=== PATIENT | female | born 1950 | race Two or more races ===

== ENCOUNTER 2019-01-14 16:27 | Inpatient (IN) | payer MEDICAID ==
--- OUTSIDE RECORDS SUMMARY | 2019-01-14 17:25 | XMS REPORT | Continuity of Care Document ---
:1950 External Reference #:[id number] Author Name Bee Moreira Care Team Providers Name Role Phone Mickie Fountain MD Primary Care Physician Unavailable Payers Date Identification Numbers Payment Provider Subscriber Policy Number: [id number] Medicaid [employer] Name: [id number] PayID: [id number] [place] [address] Advance Directives Type Date Description Status Comment Other Directive 08/11/2018 Health Care Proxy Current and Verified Problems Active Problems Provider Date Diabetes mellitus Fly Chapman M.D. Onset: 02/24/2015 Essential hypertension Fly Chapman M.D. Onset: 02/24/2015 Hyperlipidemia Fly Chapman M.D. Onset: 02/24/2015 Hypothyroidism Fly Chapman M.D. Onset: 02/24/2015 Spinal stenosis of lumbar region Bruno Dunn M.D. Onset: 03/27/2015 Acquired spondylolisthesis Bruno Dunn M.D. Onset: 03/27/2015 Disturbance in sleep behavior Regla Rolon MD Onset: 01/11/2016 Obesity Regla Rolon MD Onset: 01/11/2016 Obstructive sleep apnea syndrome Regla Rolon MD Onset: 04/25/2016 Type II diabetes mellitus uncontrolled Mickie Fountain MD Onset: 08/11/2018 Lumbar spondylolisthesis Mickie Fountain MD Onset: 12/17/2018 Family History Date Family Member(s) Observation Comments General Diabetes : (1992) Father due to Head trauma Mother Diabetes Mother 86 Social History Type Date Description Comments Sex Unknown Marital Status Lives With Son Occupation Unemployed Tobacco Use Start: Unknown Never Smoked Cigarettes Smoking Status Reviewed: 12/17/18 Never Smoked Cigarettes ETOH Use Never used alcohol Recreational Drug Use Denies Drug Use Tobacco Use Start: Unknown Patient has never smoked Exercise Type/Frequency Does not exercise Allergies, Adverse Reactions, Alerts Description No Known Drug Allergies Medications Active Medications SIG Qnty Indications Ordering Date Provider Hydrochlorothiazide 1 by mouth every 30tabs I10 [facility], 25mg day MD Mathur Tablets Glyburide Take 1 Tablet By 30tabs Mickie [facility], 5mg Tablets Mouth Every Day MD Mathur Januvia 1 by mouth every 90tabs [facility] Александр, 100mg Tablets day MD Mathur Incontinence Brief Large change as needed 200units N39.46 Miller Powers, Misc due to [employer]ERSON 9 incontinence per 30 days - women's large Disposable Underpads per 30 days, use 240units N39.46 Miller Powers, as needed [employer] 9 Gloves per 30 days, use 1Box N39.46 Millerfransico Powers, as needed due to [employer]ERSON 9 incontinence Basaglar Kwikpen 20 units sc at 3ml E11.65 [facility], 100Unit/ML bedtime MD Mathur Solution Pen-Inject Lyrica take 1 capsule by 180caps [facility], 75mg Capsules mouth twice a day MD Mathur SB Naproxen Sodium take one tablet 20tabs [facility], 220mg every 12 hours as 9 Tablets needed Raised Toilet Seat/Lock & use to assist pt 1units [facility], Arms to standing MD Malik Misc position after using toilet Depend Adjustable use four times a 120units [facility], Underwear L/XL day MD Malik Misc Metformin HCL 1 by mouth twice 180tabs [facility], 1000mg Tablets a day MD Malik Acetaminophen Extra Take 1 Tablet By 120tabs M70.61 [facility], Strength Mouth Every 4 6 500mg Tablets Hours as Needed For Pain Restasis as directed Unknown 0.05% Emulsion 6 Fluticasone Propionate 2 sprays each Unknown nostril daily as 6 50mcg/Act Suspension needed Levothyroxine Sodium Take 1 And /2 45tabs Artur Andrews 25mcg Tablets By Mouth Ulises Gregory 6 Tablets One Time Daily On An Empty Stomach Sertraline HCL 1 by mouth every 90tabs Mickie Fountain, 25mg Tablets day 5 Losartan Potassium 1 by mouth every 90tabs I10 Mickie Fountain, 50mg Tablets day 5 Crestor 1 by mouth every 90tabs E78.4 Artur Andrews 10mg Tablets day Ulises Gregory 0 Calcium 500+D 1 by mouth a day 90tabs Mickie Fountain, [id number] MD 0 Tablets Aspirin 1 by mouth every 90tabs Artur Andrews 81mg Tablets DR marvin Gregory M.D. 0 Vitamin B Complex 1 by mouth every Unknown Tablets day 0 History Medications Januvia 1 by mouth every 90tabs Mickie Fountain, 12/09/2017 - 100mg Tablets day 08/11/2018 Women's Incontinence use 2 briefs daily 60units Mickie Fountain, 03/24/2017 - Brief Extra-Large for incontinence 09/22/2018 [facility] Januvia 1 by mouth every Artur Andrews 09/16/2016 - 50mg Tablets day Ulises Gregory 09/16/2016 Janumet take 1 tablet by 60tabs E11.9 Artur Andrews 09/16/2016 - 50-1000mg Tablets mouth twice a day Ulises Gregory 12/09/2017 Tramadol HCL take one tab by 90tabs Bruno Dunn 03/29/2016 - 50mg Tablets mouth three to four M.DWhit 07/09/2017 times a day as needed for pain. Medrol 6 by mouth day 1, 5 21units Artur Andrews 03/21/2016 - 4mg TBPK by mouth day 2, 4 Ulises Gregory 03/12/2017 by mouth day 3, 3 by mouth day 4, 2 by mouth day 5, 1 by mouth day 6 Meloxicam take 1 tab by mouth 30tabs Artur Andrews 03/06/2016 - 7.5mg Tablets qdaily with food Ulises Gregory 03/12/2017 Symbicort 2 puff twice a day Unknown 01/10/2016 - 160-4.5mcg/Act 09/16/2016 Aerosol Levothyroxine Sodium take one tablet by 30tajudy Chapman, 03/10/2015 - mouth daily with Ulises 08/16/2015 50mcg Tablets empty stomach Omeprazole 1 by mouth every Unknown - 20mg Capsules day 03/12/2017 Glyburide take 1 tablet by 90tabs Mickie Fountain, - 5mg Tablets mouth every day 08/11/2018 Levocetirizine 1 by mouth every Unknown - Dihydrochloride day 09/16/2016 5mg Tablets Fluticasone Propionate 2 sprays each Unknown - nostril daily as 03/10/2015 50mcg/Act Suspension needed Breo Ellipta 1 inhalation every Unknown - day 09/16/2016 100-25mcg/Inh Aerosol Vitamin B-12 2 by mouth every Unknown - 1000mcg day 03/10/2015 Tablets Sub Day Time Cold/Flu 1 tsp daily Unknown - Relief 03/10/2015 10-5-325mg/15ML Liquid Refresh Tears Unknown - 0.5% 03/10/2015 Solution Multi Vitamin Daily 1 by mouth every Unknown - day 03/10/2015 Tablets Alendronate Sodium 1 by mouth weekly Unknown - 70mg 03/10/2015 Tablets Levothyroxine Sodium 1/2 by mouth every Unknown - day 03/10/2015 25mcg Tablets Januvia 1 tab by mouth 30tabs Artur Andrews - 50mg Tablets every day Ulises Gregory 09/16/2016 Acarbose 100mg bid Unknown - 50mg Tablets 02/24/2015 Lisinopril 1 by mouth bid Unknown - 5mg Tablets 02/24/2015 Metformin HCL 1 tablet by mouth 60tabs Artur Andrews - 1000mg twice a day Ulises Gregory 09/16/2016 Tablets Immunizations CPT Code Status Date Vaccine Lot # [id number] Given 03/17/2017 Influenza Virus Vaccine, Quadrivalent, Split, [id number] Preservative Free [id number] Given 09/16/2016 Pneumonia Vaccine [id number] 16252 Given 02/28/2016 Influ Virus Vaccine, Quadrivalent, Split Virus, [place] [id number] [address] Given 08/14/2015 Tdap - Tetanus/Diptheria/Acellular Pertussis [id number] Given 08/14/2015 Pneumococcal Conjugate Vaccine 13 Valent For [id number] Intramuscular Use 14345 Given 02/24/2015 Influenza Virus Vaccine, Quadrivalent, Split, [id number] Preservative Free Vital Signs Date Vital Result Comment 12/17/2018 11:32am Height 62.5 inches 5'2.50" Weight 232.00 lb Heart Rate 63 /min BP Systolic 155 mmHg BP Diastolic 84 mmHg Body Temperature 97.7 F O2 % BldC Oximetry 96 % BMI (Body Mass Index) 41.8 kg/m2 08/11/2018 9:30am Height 62.5 inches 5'2.50" Weight 225.25 lb Heart Rate 68 /min BP Systolic 119 mmHg BP Diastolic 84 mmHg Body Temperature 97.0 F O2 % BldC Oximetry 97 % BMI (Body Mass Index) 40.5 kg/m2 05/11/2018 4:28pm Height 62.5 inches 5'2.50" Weight 223.00 lb Heart Rate 70 /min BP Systolic Sitting 116 mmHg BP Diastolic Sitting 69 mmHg O2 % BldC Oximetry 95 % BMI (Body Mass Index) 40.1 kg/m2 12/09/2017 5:06pm Height 62.5 inches 5'2.50" Weight 214.00 lb Heart Rate 60 /min BP Systolic Sitting 100 mmHg BP Diastolic Sitting 70 mmHg O2 % BldC Oximetry 96 % BMI (Body Mass Index) 38.5 kg/m2 07/10/2017 1:28pm Height 62.5 inches 5'2.50" Weight 213.00 lb Heart Rate 74 /min BP Systolic Sitting 118 mmHg Lue large cuff BP Diastolic Sitting 82 mmHg Lue large cuff Respiratory Rate 20 /min O2 % BldC Oximetry 96 % On Ra BMI (Body Mass Index) 38.3 kg/m2 03/17/2017 4:06pm Height 62.5 inches 5'2.50" Weight 221.00 lb Heart Rate 71 /min BP Systolic Sitting 124 mmHg BP Diastolic Sitting 88 mmHg Body Temperature 97.9 F O2 % BldC Oximetry 97 % BMI (Body Mass Index) 39.8 kg/m2 09/25/2016 11:31am Height 62.5 inches 5'2.50" Weight 217.00 lb Heart Rate 67 /min BP Systolic Sitting 144 mmHg BP Diastolic Sitting 90 mmHg O2 % BldC Oximetry 97 % BMI (Body Mass Index) 39.1 kg/m2 09/16/2016 1:24pm Height 62.5 inches 5'2.50" Weight 209.00 lb Heart Rate 66 /min BP Systolic Sitting 132 mmHg BP Diastolic Sitting 82 mmHg Respiratory Rate 15 /min Body Temperature 98.0 F O2 % BldC Oximetry 98 % BMI (Body Mass Index) 37.6 kg/m2 07/19/2016 2:13pm Height 62.5 inches 5'2.50" Weight 210.00 lb Heart Rate 80 /min BP Systolic 114 mmHg BP Diastolic 86 mmHg Respiratory Rate 20 /min Pain Level 4 BMI (Body Mass Index) 37.8 kg/m2 06/17/2016 1:39pm Height 62.5 inches 5'2.50" Weight 214.38 lb Heart Rate 65 /min BP Systolic 120 mmHg BP Diastolic 60 mmHg Body Temperature 97.6 F O2 % BldC Oximetry 96 % BMI (Body Mass Index) 38.6 kg/m2 05/17/2016 2:38pm Height 62.5 inches 5'2.50" Weight 210.00 lb Heart Rate 80 /min BP Systolic 115 mmHg BP Diastolic 90 mmHg Pain Level 7 BMI (Body Mass Index) 37.8 kg/m2 04/25/2016 1:59pm Height 62.5 inches 5'2.50" Weight 216.00 lb Heart Rate 66 /min BP Systolic Sitting 134 mmHg BP Diastolic Sitting 77 mmHg Respiratory Rate 16 /min O2 % BldC Oximetry 95 % BMI (Body Mass Index) 38.9 kg/m2 03/27/2016 11:07am Height 62.5 inches 5'2.50" Weight 216.00 lb Heart Rate 82 /min BP Systolic Sitting 130 mmHg BP Diastolic Sitting 80 mmHg Pain Level 8 BMI (Body Mass Index) 38.9 kg/m2 03/05/2016 10:57am Weight 215.00 lb Heart Rate 73 /min BP Systolic Sitting 116 mmHg BP Diastolic Sitting 84 mmHg Body Temperature 98.5 F Pain Level 9 R hip O2 % BldC Oximetry 96 % 02/28/2016 10:20am Weight 217.00 lb Heart Rate 70 /min BP Systolic Sitting 118 mmHg BP Diastolic Sitting 72 mmHg Body Temperature 97.3 F O2 % BldC Oximetry 98 % 01/26/2016 8:04am Height 62.5 inches 5'2.50" Weight 215.25 lb Heart Rate 65 /min BP Systolic 138 mmHg BP Diastolic 98 mmHg Body Temperature 97.7 F O2 % BldC Oximetry 98 % BMI (Body Mass Index) 38.7 kg/m2 01/11/2016 1:43pm Height 62.5 inches 5'2.50" Weight 215.00 lb Heart Rate 74 /min BP Systolic 102 mmHg BP Diastolic 68 mmHg O2 % BldC Oximetry 96 % BMI (Body Mass Index) 38.7 kg/m2 Neck Circumference in inches 15.5 08/14/2015 11:41am Height 62.5 inches 5'2.50" Weight 212.00 lb Heart Rate 77 /min BP Systolic Sitting 98 mmHg BP Diastolic Sitting 70 mmHg Body Temperature 97.8 F O2 % BldC Oximetry 97 % BMI (Body Mass Index) 38.2 kg/m2 03/27/2015 10:57am Height 62.5 inches 5'2.50" Weight 221.00 lb Heart Rate 78 /min BP Systolic Sitting 140 mmHg BP Diastolic Sitting 80 mmHg Pain Level 5 back BMI (Body Mass Index) 39.8 kg/m2 03/14/2015 1:45pm Height 62.5 inches 5'2.50" Weight 221.00 lb Pain Level 10 BMI (Body Mass Index) 39.8 kg/m2 03/10/2015 8:48am Height 62 inches 5'2" Weight 219.25 lb Heart Rate 58 /min BP Systolic Sitting 102 mmHg BP Diastolic Sitting 70 mmHg Body Temperature 97.1 F O2 % BldC Oximetry 98 % BMI (Body Mass Index) 40.1 kg/m2 02/24/2015 1:07pm Height 62 inches 5'2" Weight 217.00 lb Heart Rate 65 /min BP Systolic Sitting 110 mmHg BP Diastolic Sitting 70 mmHg Body Temperature 97.6 F O2 % BldC Oximetry 98 % BMI (Body Mass Index) 39.7 kg/m2 Results Test Date Facility Test Result H/L Range Note Laboratory test 12/17/2018 [facility] Hemoglobin A1c 8.1 High 5-7 finding Comp Metabolic 08/11/2018 [facility] Sodium 134 mmol/L Low 135 -145 [place] [address] [phone] Potassium 4.9 mmol/L Normal 3.5-5.0 Chloride 99 mmol/L Low 101-111 Co2 Carbon Dioxide 27 mmol/L Normal 22-32 Anion Gap 8 mmol/L Normal 2-11 Glucose 212 mg/dL High 70-100 Blood Urea Nitrogen 12 mg/dL Normal 6-24 Creatinine 0.66 mg/dL Normal 0.51-0.95 BUN/Creatinine Ratio 18.2 Normal 8-20 Calcium 9.6 mg/dL Normal 8.6-10.3 Total Protein 6.5 g/dL Normal 6.4-8.9 Albumin 4.3 g/dL Normal 3.2-5.2 Globulin 2.2 g/dL Normal 2-4 Albumin/Globulin Ratio 2.0 Normal 1-3 Total Bilirubin 0.30 mg/dL Normal 0.2-1.0 Alkaline Phosphatase 39 U/L Normal 34-104 Alt 26 U/L Normal 7-52 Ast 25 U/L Normal 13-39 Egfr Non- 88.5 >60 Egfr 107.1 >60 1 Lipid Profile 08/11/2018 [facility] Triglycerides 174 mg/dL 2 (Trig/Chol/HDL) [place] [address] [phone] Cholesterol 89 mg/dL 3 HDL Cholesterol 37.0 mg/dL 4 LDL Cholesterol 17 mg/dL 5 Laboratory 08/11/2018 [facility] TSH (Thyroid 5.54 Normal 0.34 -5.60 test finding [place] [facility] Horm) mcIU/[place] [address] [phone] T3 Free 2.70 pg/mL Normal 2.5-3.9 Thyroxine 8.39 g/dL Normal 6.09-12.23 Laboratory test 08/11/2018 [facility] Hemoglobin A1c 9.3 High 5-7 finding Laboratory test 05/11/2018 [facility] Hemoglobin A1c 8.1 High 5-7 finding Lipid Profile 03/02/2018 [facility] Triglycerides 116 mg/dL 6 (Trig/Chol/HDL) [address] [place] [address] [phone] Cholesterol 113 mg/dL 7 HDL Cholesterol 43.2 mg/dL 8 LDL Cholesterol 47 mg/dL 9 Urine Microalbumin 03/02/2018 [facility] Ur Microalbumin < 15.[address] (mg/L) [place] [address] [phone] Urine Creatinine 40.28 mg/dL Urine Microalbumin/Creatinine TNP <31 10 Comp Metabolic 03/02/2018 [facility] Sodium 138 mmol/L Normal 135-[address] [place] [address] [phone] Potassium 4.4 mmol/L Normal 3.5-5.0 Chloride 101 mmol/L Normal 101-111 Co2 Carbon Dioxide 29 mmol/L Normal 22-32 Anion Gap 8 mmol/L Normal 2-11 Glucose 102 mg/dL High 70-100 Blood Urea Nitrogen 10 mg/dL Normal 6-24 Creatinine 0.60 mg/dL Normal 0.51-0.95 BUN/Creatinine Ratio 16.7 Normal 8-20 Calcium 10.1 mg/dL Normal 8.6-10.3 Total Protein 7.0 g/dL Normal 6.4-8.9 Albumin 4.4 g/dL Normal 3.2-5.2 Globulin 2.6 g/dL Normal 2-4 Albumin/Globulin Ratio 1.7 Normal 1-3 Total Bilirubin 0.40 mg/dL Normal 0.2-1.0 Alkaline Phosphatase 47 U/L Normal 34-104 Alt 27 U/L Normal 7-52 Ast 28 U/L Normal 13-39 Egfr Non- 99.1 >60 Egfr 119.9 >60 11 Laboratory 03/02/2018 [facility] TSH (Thyroid 5.39 Normal 0.34 -5.[address] Stim Horm) mcIU/[place] [address] [phone] T3 Free 3.00 pg/mL Normal 2.5-3.9 Free T4 (Free Thyroxine) 1.07 ng/dL Normal 0.61-1.12 Laboratory test 12/09/2017 [facility] Hemoglobin A1c 8.1 High 5-7 finding Laboratory test 03/17/2017 [facility] Hemoglobin A1c 7.6 High 5-7 finding Laboratory test 03/13/2017 [facility] Free T4 (Free 1.01 Normal 0.61-1.[address] Thyroxine) ng/[place] [address] [phone] TSH (Thyroid Stim Horm) 7.19 mcIU/mL High 0.34-5.60 Laboratory test 09/25/2016 [facility] Cytology SEE RESULT BELOW [address] [place] [address] [phone] HPV Rna Ww/Reflex Genotype Negative Normal Negative 13 Lipid Profile 09/10/2016 [facility] Triglycerides 170 mg/dL Normal 14 (Trig/Chol/HDL) [address] [place] [address] [phone] Cholesterol 101 mg/dL Normal 15 HDL Cholesterol 36.8 mg/dL Normal 16 LDL Cholesterol 30 mg/dL Normal 17 Urine Microalbumin 09/10/2016 [facility] Urine 106.[address] Creatinine mg/[place] [address] [phone] Ur Microalbumin (mg/L) < 15.0 mg/L Normal Urine Microalbumin/Creatinine TNP ug/mg Normal <31 18 Laboratory test 09/10/2016 [facility] Hemoglobin A1c 7.4 % High Less [address] (Glyco HGB) than 6.0 [place] [address] [phone] Comp Metabolic 09/10/2016 [facility] Sodium 137 Normal 133- [address] mmol/[place] [address] [phone] Potassium 4.3 mmol/L Normal 3.5-5.0 Chloride 100 mmol/L Low 101-111 Co2 Carbon Dioxide 29 mmol/L Normal 22-32 Anion Gap 8 mmol/L Normal 2-11 Glucose 114 mg/dL High 70-100 Blood Urea Nitrogen 9 mg/dL Normal 6-24 Creatinine 0.64 mg/dL Normal 0.51-0.95 BUN/Creatinine Ratio 14.1 Normal 8-20 Calcium 9.6 mg/dL Normal 8.6-10.3 Total Protein 6.9 g/dL Normal 6.4-8.9 Albumin 4.2 g/dL Normal 3.2-5.2 Globulin 2.7 g/dL Normal 2-4 Albumin/Globulin Ratio 1.6 Normal 1-3 Total Bilirubin 0.60 mg/dL Normal 0.2-1.0 Alkaline Phosphatase 38 U/L Normal 34-104 Alt 16 U/L Normal 7-52 Ast 17 U/L Normal 13-39 Egfr Non- 92.3 Normal >60 Egfr 118.7 Normal >60 20 Laboratory test 02/28/2016 [facility] Hemoglobin A1c 6.9 5-7 finding Laboratory test 08/14/2015 [facility] Hemoglobin A1c 6.4 5-7 finding Laboratory test 08/14/2015 [facility] TSH (Thyroid 0.56 Normal 0.34-5.[address] Stim Horm) ?IU/[place] [address] [phone] Free T4 (Free Thyroxine) 1.36 ng/dL High 0.61-1.12 Hepatitis C Antibody Nonreactive Normal Nonreactive Laboratory test 03/10/2015 [facility] TSH (Thyroid 5.33 Normal 0.34-5.[address] Stim Horm) ?IU/[place] [address] [phone] Comp Metabolic 03/02/2015 [facility] Sodium 137 mmol/L Normal 133-[address] [place] [address] [phone] Potassium 4.2 mmol/L Normal 3.5-5.0 Chloride 101 mmol/L Normal 101-111 Co2 Carbon Dioxide 27 mmol/L Normal 22-32 Anion Gap 9 mmol/L Normal 2-11 Glucose 154 mg/dL High 70-100 Blood Urea Nitrogen 13 mg/dL Normal 6-24 Creatinine 0.68 mg/dL Normal 0.51-0.95 BUN/Creatinine Ratio 19.1 Normal 8-20 Calcium 9.5 mg/dL Normal 8.6-10.3 Total Protein 7.1 g/dL Normal 6.4-8.9 Albumin 4.2 g/dL Normal 3.2-5.2 Globulin 2.9 g/dL Normal 2-4 Albumin/Globulin Ratio 1.4 Normal 1-3 Total Bilirubin 0.60 mg/dL Normal 0.2-1.0 Alkaline Phosphatase 41 U/L Normal 34-104 Alt 21 U/L Normal 7-52 Ast 18 U/L Normal 13-39 Egfr Non- 86.6 Normal >60 Egfr 111.3 Normal >60 21 Lipid Profile 03/02/2015 [facility] Triglycerides 108 mg/dL Normal 22 (Trig/Chol/HDL) [address] [place] [address] [phone] Cholesterol 88 mg/dL Normal 23 HDL Cholesterol 39.8 mg/dL Normal 24 LDL Cholesterol 27 mg/dL Normal 25 Urine Microalbumin 03/02/2015 [facility] Ur Microalbumin 13.0 mg /L Normal Random [address] (mg/L) [place] [address] [phone] Urine Creatinine 340.31 mg/dL Normal Urine Microalbumin/Creatinine 3.8 ug/mg Normal <31 Urinalysis Profile 03/02/2015 [facility] Urine Color Yellow Normal [address] [place] [address] [phone] Urine Appearance Cloudy Normal Urine Specific [place] 1.028 Normal 1.010-1.030 Urine pH 5.0 Normal 5-9 Urine Urobilinogen Negative Normal Negative Urine Ketones Negative Normal Negative Urine Protein Negative Normal Negative Urine Leukocytes Trace Abnormal Negative Urine Blood Negative Normal Negative Urine Nitrite Negative Normal Negative Urine Bilirubin Negative Normal Negative Urine Glucose Negative Normal Negative Urine White Blood Cell 1+(6-10/hpf) Abnormal Absent Urine Red Blood Cell 1+(3-5/hpf) Abnormal Absent Urine Bacteria Absent Normal Absent Urine Squamous Epithelial Cell Present Abnormal Absent Urine Transitional Epithelial Present Abnormal Absent Urine Renal Epithelial Cells Present Abnormal Absent Laboratory test 03/02/2015 [facility] LDL Cholesterol 37 mg/dL Normal [address] [place] [address] [phone] TSH (Thyroid Stim Horm) 5.37 ?IU/mL Normal 0.34-5.60 27 Urine Culture And Sensitivities SEE RESULT BELOW 28 Laboratory test finding 02/24/2015 [facility] Hemoglobin A1c 6.8 5-7 1 Because ethnic data is not always readily available, this report includes an eGFR for both -Americans and non- Americans. The National Kidney Disease Education Program (NKDEP) does not endorse the use of the MDRD equation for patients that are not between the ages of 18 and 70, are , have extremes of body size, muscle mass, or nutritional status, or are non- or non-. According to the National Kidney Foundation, irrespective of diagnosis, the stage of the disease is based on the level of kidney function: Stage Description GFR(mL/min/1.73 m(2)) 1 Kidney damage with normal or decreased GFR 90 2 Kidney damage with mild decrease in GFR 60-89 3 Moderate decrease in GFR 30-59 4 Severe decrease in GFR 15-29 5 Kidney failure <15 (or dialysis) 2 Desirable: <150 Borderline High: 150-199 High: 200-499 Very High: >500 3 Desirable: <200 Borderline High: 200-239 High: >239 4 Low: <40 Desirable: 40-60 High: >60 5 Desirable: <100 Near Optimal: 100-129 Borderline High: 130-159 High: 160-189 Very High: >189 6 Desirable: <150 Borderline High: 150-199 High: 200-499 Very High: >500 7 Desirable: <200 Borderline High: 200-239 High: >239 8 Low: <40 Desirable: 40-60 High: >60 9 Desirable: <100 Near Optimal: 100-129 Borderline High: 130-159 High: 160-189 Very High: >189 10 Unable to calculate due to low microalbumin 11 Because ethnic data is not always readily available, this report includes an eGFR for both -Americans and non- Americans. The National Kidney Disease Education Program (NKDEP) does not endorse the use of the MDRD equation for patients that are not between the ages of 18 and 70, are , have extremes of body size, muscle mass, or nutritional status, or are non- or non-. According to the National Kidney Foundation, irrespective of diagnosis, the stage of the disease is based on the level of kidney function: Stage Description GFR(mL/min/1.73 m(2)) 1 Kidney damage with normal or decreased GFR 90 2 Kidney damage with mild decrease in GFR 60-89 3 Moderate decrease in GFR 30-59 4 Severe decrease in GFR 15-29 5 Kidney failure <15 (or dialysis) 12 SEE RESULT BELOW Name: LISSY FIELDS : [address]: Hanna Christianson NP Acct: [id number] Unit: [id number] AGE: 66 Location: [facility] Re09/25/16 SEX: F Status: REG REF SPEC: [id number] NINI: 09/25/16-[address]: Hanna Christianson NP REQ: [id number] RECD: 09/25/16 STATUS: SOUT _ ORDERED: TP IMAGE ANAL, HPV/Thin Prep, HPV 16/18 GENE COMMENTS: [id number] FINAL DIAGNOSIS Negative for Intraepithelial lesion or Malignancy A. Ectocervical/Endocervical Specimen Adequacy: Satisfactory of evaluation Transformation zone component identified Patient Information: HPV: High risk HPV RNA testing regardless of pap results. HPV 16/18 Genotype Reflex Actual Specimen Date: 09/25/16 LMP If Unknown: age 43 ?: N Post Menopausal?: Y Hysterectomy?: N Previous Abnormal Pap Smears?:N Date Time Test Result Flag (u) Normal Range 09/25/16 1209 HPV RNA RFLX GE Negative Negative The high-risk HPV types detected by the assay include: 16, 18, 31, 33, 35, 39, 45, 51, 52, 56, 58, 59, 66, and 68. Signed (signature on file) ROGERIO Barbosa([facility]) 09/26 1555 This Pap test was evaluated with the assistance of the [employer]p Test Imaging System. Due to cytologic findings at the messaging architect microscope, comprehensive manual rescreening by a Singe Machine Operator may be required. The Pap Smear is a screening test designed to aid in the detection of premalignant and malignant conditions of the uterine cervix. It is not a diagnostic procedure and should not be used as the sole means of detecting cervical cancer. Both false- positive and false- negative reports do occur. Depending on your risk status, a Pap smear should be obtained and evaluated every 1-3 years. END OF REPORT * ML = Testing performed at Main Lab DEPARTMENT OF PATHOLOGY, [address] [place] [address] Carlos Don M.D. Director JACQUELINE # [id number] RUN DATE: 09/26/16 [facility] LAB LIVE PAGE 1 Patient: LISSY FIELDS [id number] (Continued) 13 The high-risk HPV types detected by the assay include: 16, 18, 31, 33, 35, 39, 45, 51, 52, 56, 58, 59, 66, and 68. 14 Desirable <150 Borderline high 150-199 High 200-499 Very High >500 15 Desirable <200 Borderline high 200-239 High >239 16 Low <40 Desirable: 40-60 High: >60 17 Desirable: <100 mg/dL Near Optimal: 100-129 mg/dL Borderline High: 130-159 mg/dL High: 160-189 mg/dL Very High: >189 mg/dL 18 Unable to calculate due to low microalbumin 19 Therapeutic target for the treatment of diabetes Mellitus patients is <7% HBA1C, and in selective patients <6.0%.Please refer to [place] [employer] Diabetic care guidelines for further information. 20 Because ethnic data is not always readily available, this report includes an eGFR for both -Americans and non- Americans. The National Kidney Disease Education Program (NKDEP) does not endorse the use of the MDRD equation for patients that are not between the ages of 18 and 70, are , have extremes of body size, muscle mass, or nutritional status, or are non- or non-. According to the National Kidney Foundation, irrespective of diagnosis, the stage of the disease is based on the level of kidney function: Stage Description GFR(mL/min/1.73 m(2)) 1 Kidney damage with normal or decreased GFR 90 2 Kidney damage with mild decrease in GFR 60-89 3 Moderate decrease in GFR 30-59 4 Severe decrease in GFR 15-29 5 Kidney failure <15 (or dialysis) 21 Because ethnic data is not always readily available, this report includes an eGFR for both -Americans and non- Americans. The National Kidney Disease Education Program (NKDEP) does not endorse the use of the MDRD equation for patients that are not between the ages of 18 and 70, are , have extremes of body size, muscle mass, or nutritional status, or are non- or non-. According to the National Kidney Foundation, irrespective of diagnosis, the stage of the disease is based on the level of kidney function: Stage Description GFR(mL/min/1.73 m(2)) 1 Kidney damage with normal or decreased GFR 90 2 Kidney damage with mild decrease in GFR 60-89 3 Moderate decrease in GFR 30-59 4 Severe decrease in GFR 15-29 5 Kidney failure <15 (or dialysis) 22 Desirable <150 Borderline high 150-199 High 200-499 Very High >500 23 Desirable <200 Borderline high 200-239 High >239 24 Low <40 Desirable: 40-60 High: >60 25 Desirable: <100 mg/dL Near Optimal: 100-129 mg/dL Borderline High: 130-159 mg/dL High: 160-189 mg/dL Very High: >189 mg/dL 26 Desirable: <100 mg/dL Near Optimal: 100-129 mg/dL Borderline High: 130-159 mg/dL High: 160-189 mg/dL Very High: >189 mg/dL 27 FASTING 28 SEE RESULT BELOW Name: LISSY FIELDS : [address]: Fly Chapman MD Acct: [id number] Unit: [id number] AGE: 64 Location: LAB Re03/02/15 SEX: F Status: REG REF SPEC: [id number] NINI: 03/02/[address]: Fly Chapman MD REQ: [id number] RECD: 03/02/15 STATUS: COMP _ SOURCE: URINE SPDESC: ORDERED: Urine Culture Procedure Result Verified Site Urine Culture Final 03/04/15- 1132 ML Organism 1 NORMAL CJ Chaplin Count 50-75,000 (Many) CFU/ML * ML - MAIN LAB ([facility]) . END OF REPORT * ML = Testing performed at Main Lab DEPARTMENT OF PATHOLOGY, [address] [place] [address] Carlos Don M.D. Director [facility] # [id number] Procedures Date Code Description Status 04/03/2016 [id number] Mammogram Completed 03/14/2016 61502 Polysomnography Sleep Staging 4+ Parameters W/Cpap Completed 03/12/2016 22865 Polysomnography Sleep Staging 4+ Parameters Completed 04/20/2015 [id number] Diabetic Retinal Eye Exam Completed 03/31/2015 [id number] Mammogram Completed 03/02/2015 [id number] Bone Mineral Density Test Completed Encounters Type Date Location Provider Dx Diagnosis Office Visit 08/11/2018 [facility] Internal Mickie Fountain MD E03.9 Hypothyroidism, 9:40a Medicine - Ccmob unspecified E11.65 Type 2 diabetes mellitus with hyperglycemia G47.33 Obstructive sleep apnea (adult) (pediatric) I10 Essential (primary) hypertension E11.65 Type 2 diabetes mellitus with hyperglycemia Office Visit 05/11/2018 4:30p [facility] Internal Mickie Fountain E11.65 Type 2 diabetes Medicine - MD mellitus with Ccmob hyperglycemia I10 Essential (primary) hypertension E03.9 Hypothyroidism, unspecified G47.33 Obstructive sleep apnea (adult) (pediatric) E78.00 Pure hypercholesterolemia, unspecified Z12.11 Encounter for screening for malignant neoplasm of colon N39.46 Mixed incontinence Z68.38 Body mass index (BMI) 38.0-38.9, adult Office 12/09/2017 [facility] Nj Andrews E11.9 Type 2 diabetes Visit 4:00p Jeri Gregory M.D. 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 mellitus without complications E03.9 Hypothyroidism, unspecified I10 Essential (primary) hypertension E78.00 Pure hypercholesterolemia, unspecified Z23 Encounter for immunization Z12.11 Encounter for screening for malignant neoplasm of colon Z12.31 Encntr screen mammogram for malignant neoplasm of breast Office Visit 09/25/2016 11:20a [facility] Internal Hanna Sammy, Z01.419 Encntr for clinical resource nurse Medicine - N.P. exam (general) Ccmob (routine) w/o abn findings Office Visit 09/16/2016 1:20p [facility] Andrews Z00.00 Encntr for Nj Gregory M.D. 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 Office Visit 05/17/2016 [facility] Otilio Haji66.6 Other congenital 2:30p Jeremy Ray M.D. valgus deformities of feet Office Visit 04/25/2016 [facility] Sleep Regla G47.33 Obstructive 1:45p Services Of [facility] MD Gonzales sleep apnea (adult) (pediatric) E66.09 Other obesity due to excess calories Office Visit 03/27/2016 11:00a Neurosurgery Sintia Jenkins, M48.06 Spinal stenosis, Services Of [facility] MARS lumbar region M43.16 Spondylolisthesis, lumbar region Office Visit 03/05/2016 [place] [facility] jN Andrews M25.551 Pain in 10:20a Jeri Gregory M.D. right hip M54.5 Low back pain Office 02/28/2016 [place] Nj Andrews E11.9 Type 2 diabetes Visit 10:20a Jeri Gregory M.D. mellitus without complications I10 Essential (primary) hypertension E03.9 Hypothyroidism, unspecified M54.5 Low back pain G47.9 Sleep disorder, unspecified M25.551 Pain in right hip E78.00 Pure hypercholesterolemia, unspecified Z23 Encounter for immunization Office 01/26/2016 DoNotUse [facility] Internal Otilio M70.61 Trochanteric Visit 8:00a Jeri Cantrell M.D. bursitis, right hip I10 Essential (primary) hypertension Office Visit 01/11/2016 2:00p Pulmonology And Regla G47.9 Sleep disorder, Sleep Services Of MD Gonzales unspecified Loft Worker Head E66.09 Other obesity due to excess calories R06.83 Snoring G47.8 Other sleep disorders G47.10 Hypersomnia, unspecified Office Visit 08/14/2015 11:20a [facility] Internal Artur Andrews E11.9 Type 2 diabetes Anna Gregory M.D. mellitus without Ccmob complications I10 Essential (primary) hypertension E03.8 Other specified hypothyroidism Z11.59 Encounter for screening for other viral diseases Z12.11 Encounter for screening for malignant neoplasm of colon Z23 Encounter for immunization Office Visit 03/27/2015 11:00a Neurosurgery Bruno Dunn, M48.06 Spinal Services Of Razia Montgomery stenosis, lumbar region M43.16 Spondylolisthesis, lumbar region Office Visit 03/14/2015 1:40p Orthopedic Otilio M76.821 Posterior tibial Services Of Ulises Ray tendinitis, right C.M.A. 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 mellitus without Suite R complications I10 Essential (primary) hypertension E78.4 Other hyperlipidemia E03.8 Other specified hypothyroidism M79.671 Pain in right foot M54.5 Low back pain M85.80 Oth disrd of bone density and structure, unspecified site G47.33 Obstructive sleep apnea (adult) (pediatric) F32.8 Other depressive episodes J06.9 Acute upper respiratory infection, unspecified Z12.31 Encntr screen mammogram for malignant neoplasm of breast E66.09 Other obesity due to excess calories Office Visit 02/24/2015 1:00p [facility] Internal Fly Chapman, E11.9 Type 2 diabetes Medicine - M.D. mellitus without Suite R complications I10 Essential (primary) hypertension E78.4 Other hyperlipidemia E03.8 Other specified hypothyroidism M79.671 Pain in right foot M54.5 Low back pain M85.80 Oth disrd of bone density and structure, unspecified site E66.09 Other obesity due to excess calories Z23 Encounter for immunization E11.65 Type 2 diabetes mellitus with hyperglycemia Plan of Treatment Future Appointment(s):03/19/2019 2:20 pm - Mick[facility] Fountain [facility] at [facility] Mickie Fountain, MDR22.41 Localized swelling, mass and lump, right lower limbNew Xrays:Foot Right 3+ VWS, Ordered: 12/17/18Venous Doppler Lower Right Ext, Ordered: 12/17/18E11.65 Type 2 diabetes mellitus with hyperglycemiaFollow up:F/U 3 [id number] Essential (primary) hypertensionNew Medication:Hydrochlorothiazide 25 mg - 1 by mouth every dayComments:BP not controlledStart HCTZ dailyContinue [id number] Spondylolisthesis, lumbar regionComments:ok to increase lyrica to 75mg twice a dayG47.9 Sleep disorder, unspecifiedReferral:Regla Rolon MD, Pulmonary Diseases
[2019-01-14 17:26] LABS: ABS Eosinophils 0.1 10^3/ul (0-0.6); ABS Lymphocytes 0.7 10^3/ul (1.0-4.8); ABS Monocytes 0.6 10^3/ul (0-0.8); ABS Neutrophils 8.2 10^3/ul (1.5-7.7); Eosinophil % 1.1 %; Hematocrit 32 % (35-47); Hemoglobin 11.1 g/dL (12.0-16.0); Lymphocyte % 6.9 %; Mean Corpuscular HGB Conc 34 g/dL (31-36); Mean Corpuscular Hemoglobin 29 pg (27-31); Mean Corpuscular Volume 83 fL (80-97); Mean Platelet Volume 8.7 fL (7.4-10.4); Platelet Count 242 10^3/uL (150-450); Red Cell Distribution Width 15 % (10-15); White Blood Count 9.7 10^3/uL (3.5-10.8)
[2019-01-14 17:33] LABS: INR 1.11 (0.82-1.09)
[2019-01-14 17:46] LABS: Albumin 4.1 g/dL (3.2-5.2); Albumin/Globulin Ratio 1.5 (1-3); BUN/Creatinine Ratio 19.3 (8-20); Calcium 9.8 mg/dL (8.6-10.3); EGFR African American 126.9 (>60); EGFR Non-African American 104.9 (>60); Globulin 2.8 g/dL (2-4); Potassium 4.2 mmol/L (3.5-5.0); Total Bilirubin 0.6 mg/dL (0.2-1.0); Total Protein 6.9 g/dL (6.4-8.9)
[2019-01-14 21:36] LABS: Magnesium 1.3 mg/dL (1.9-2.7)
--- NOTE | 2019-01-14 21:37 | ED ---
Complex/Multi-Sys Presentation - HPI Summary HPI Summary: This pt is a 68 Y/O F, accompanied by her son, presenting to [facility] with a CC of SOB and CP this morning. Yesterday she had a fall but did not hit the ground or her head and landed between a chair and her couch. Her son states that she had CP that started at 1415 and states that she was slurring her speech and her thoughts were "foggy". She states that her CP has resolved but she still has SOB. She had dyspnea at rest and exertion. She also states that she goes to the bathroom 18-20 times a day. She denies any fever, cough, nausea, diarrhea, abdominal pain, and headaches. She also reports that she has had an increase in swelling in her legs. Her son states that she has not worn her CPAP at night for 3 weeks. She has no alleviating symptoms. She has a PMHx of diabetes, thyroid disease, hypertension, and sleep apnea. She recently began taking hydrocholorthiazide for leg edema. - History Of Current Complaint Chief Complaint: EDShortnessOfBreath Time Seen by Provider: 01/14/19 21:10 Hx Obtained From: Patient, Family/Ripsaw Grader - son Onset/Duration: Gradual Onset, Still Present Timing: Constant Severity Currently: None Aggravating Factor(s): dyspnea is increased with exertion Alleviating Factor(s): nothing Associated Signs And Symptoms: Positive: Confusion, SOB, Chest Pain, Edema, Back Pain, Other - Negative: headache Positive: new medication. Negative: Cough , Nausea, Vomiting, Diarrhea, Abdominal Pain, Fever - Allergies/Home Medications Allergies/Adverse Reactions: Allergies Allergy/AdvReac Type Severity Reaction Status Date / Time No Known Allergies Allergy Verified 01/14/19 21:09 Home Medications: Home Medications Aspirin EC TAB* [Ecotrin EC Low Dose 81 MG*] 81 mg PO DAILY 01/14/19 [History Confirmed 01/14/19] Cyclosporine 0.05% OPHTH (NF) [Restasis 0.05% OPHTH] 1 drop BOTH EYES BID [History Confirmed 01/14/19] Levothyroxine TAB* [Synthroid 75 MCG TAB*] 75 mcg PO DAILY 01/14/19 [History Confirmed 01/14/19] Pregabalin [Lyrica] 75 mg PO DAILY MDD 75 mg 01/14/19 [History Confirmed ] Rosuvastatin (NF) [Crestor (NF)] 10 mg PO DAILY 01/14/19 [History Confirmed 09/27] SitaGLIPtin (NF) [Januvia (NF)] 100 mg PO DAILY 01/14/19 [History Confirmed 09/27] metFORMIN* [Glucophage 1000 MG TAB *] 1,000 mg PO BID 01/14/19 [History Confirmed 01/14/19] PMH/Surg Hx/FS Hx/Imm Hx Previously Healthy: Yes Endocrine/Hematology History: Reports: Hx Diabetes, Hx Thyroid Disease Cardiovascular History: Reports: Hx Hypercholesterolemia, Hx Hypertension Denies: Hx Pacemaker/ICD Respiratory History: Reports: Hx Sleep Apnea History: Denies: Hx Renal Disease Musculoskeletal History: Reports: Hx Back Problems, Other Musculoskeletal History - lumbar spinal stenosis, acquired spondylolisthesis Sensory History: Reports: Hx Glaucoma, Other Sensory Impairments - dentures Denies: Hx Hearing Aid Opthamlomology History: Reports: Hx Glaucoma, Other Sensory Impairments - dentures Neurological History: Reports: Other Neuro Impairments/Disorders - spinal stenosis. PAIN CLINIC PT. Psychiatric History: Denies: Hx Panic Disorder - Cancer History Hx Chemotherapy: No Hx Radiation Therapy: No - Surgical History Surgical History: Yes Surgery Procedure, Year, and Place: CATARACTS Infectious Disease History: No Infectious Disease History: Denies: Traveled Outside the [place] in Last 30 Days - Family History Known Family History: Positive: Other - low potssium - Social History Occupation: Retired Lives: With Family Alcohol Use: None Hx Substance Use: No Substance Use Type: Reports: None Hx Tobacco Use: No Smoking Status (MU): Never Smoked Tobacco Review of Systems Negative: Fever Positive: Chest Pain Positive: Shortness Of Breath. Negative: Cough Negative: Abdominal Pain, Vomiting, Diarrhea, Nausea Negative: Headache All Other Systems Reviewed And Are Negative: Yes Physical Exam - Summary Physical Exam Summary: General: Well-developed, Obese female. No acute distress. HEENT: Normocephalic, Atraumatic. Eyes: Conjuctiva normal, PERRL. Ears: TMs within normal limits. Nares: (-) discharge, (-) erythema. Oropharynx: Clear, mucous membranes moist, (-) exudates. Neck: Soft, FROM, (-) lymphadenopathy, (-) thyromegaly, (-) JVD. Cardiovascular: Normal sinus rhythm, (-) murmur. Lungs: Clear to auscultation bilaterally (-) wheezes, (-) rales, (-) rhonchi. Abdomen: Soft, non-tender, non-distended, (-) organomegaly, normal bowel sounds. Back: (-) CVA tenderness Extremities: +1 edema of her extremities Skin: Warm, dry, (-) rash. Neuro: Alert and oriented x3, no focal deficits. Psychiatric: Mood normal, affect normal. Triage Information Reviewed: Yes Vital Signs On Initial Exam: Initial Vitals Temp Pulse Resp BP Pulse Ox 97.1 F 74 20 155/76 97 01/14/19 16:41 01/14/19 16:41 01/14/19 16:41 01/14/19 16:41 01/14/19 16:41 Vital Signs Reviewed: Yes Diagnostics - Vital Signs Vital Signs Temp Pulse Resp BP Pulse Ox 01/14/19 20:31 97.9 F 64 18 144/80 97 01/14/19 18:03 97.8 F 69 18 128/69 96 01/14/19 16:41 97.1 F 74 20 155/76 97 - Laboratory Lab Results: Lab Results 01/14/19 01/14/19 01/14/19 Range/Units 17:08 17:08 17:08 WBC 9.7 (3.5-10.8) 10^3/uL RBC 3.90 (3.70-4.87) 10^6 /uL Hgb 11.1 L (12.0-16.0) g/dL Hct 32 L (35-47) % MCV 83 (80-97) fL MCH 29 (27-31) pg MCHC 34 (31-36) g/dL RDW 15 (10-15) % Plt Count 242 (150-450) 10^3/uL MPV 8.7 (7.4-10.4) fL Neut % (Auto) 85.1 % Lymph % (Auto) 6.9 % [place] % (Auto) 6.6 % Eos % (Auto) 1.1 % Baso % (Auto) 0.3 % Absolute Neuts (auto) 8.2 H (1.5-7.7) 10^3/ul Absolute Lymphs (auto) 0.7 L (1.0-4.8) 10^3/ul Absolute Monos (auto) 0.6 (0-0.8) 10^3/ul Absolute Eos (auto) 0.1 (0-0.6) 10^3/ul Absolute Basos (auto) 0.0 (0-0.2) 10^3/ul Absolute Nucleated RBC 0.0 10^3/ul Nucleated RBC % 0.0 INR (Anticoag Therapy) 1.11 H (0.82-1.09) Sodium 118 L* (135-145) mmol/L Potassium 4.2 (3.5-5.0) mmol/L Chloride 83 L (101-111) mmol/L Carbon Dioxide 27 (22-32) mmol/L Anion Gap 8 (2-11) mmol/L BUN 11 (6-24) mg/dL Creatinine 0.57 (0.51-0.95) mg/dL Est GFR ( Amer) 126.9 (>60) Est GFR (Non-Af Amer) 104.9 (>60) BUN/Creatinine Ratio 19.3 (8-20) Glucose 230 H (70-100) mg/dL Calcium 9.8 (8.6-10.3) mg/dL Magnesium Pending Total Bilirubin 0.60 (0.2-1.0) mg/dL AST 27 (13-39) U/L ALT 33 (7-52) U/L Alkaline Phosphatase 54 (34-104) U/L Troponin I 0.00 (<0.04) ng/mL B-Natriuretic Peptide (<=100) pg/mL Total Protein 6.9 (6.4-8.9) g/dL Albumin 4.1 (3.2-5.2) g/dL Globulin 2.8 (2-4) g/dL Albumin/Globulin Ratio 1.5 (1-3) 01/14/19 01/14/19 Range/Units 17:08 20:38 WBC (3.5-10.8) 10^3/uL RBC (3.70-4.87) 10^6 /uL Hgb (12.0-16.0) g/dL Hct (35-47) % MCV (80-97) fL MCH (27-31) pg MCHC (31-36) g/dL RDW (10-15) % Plt Count (150-450) 10^3/uL MPV (7.4-10.4) fL Neut % (Auto) % Lymph % (Auto) % [place] % (Auto) % Eos % (Auto) % Baso % (Auto) % Absolute Neuts (auto) (1.5-7.7) 10^3/ul Absolute Lymphs (auto) (1.0-4.8) 10^3/ul Absolute Monos (auto) (0-0.8) 10^3/ul Absolute Eos (auto) (0-0.6) 10^3/ul Absolute Basos (auto) (0-0.2) 10^3/ul Absolute Nucleated RBC 10^3/ul Nucleated RBC % INR (Anticoag Therapy) (0.82-1.09) Sodium (135-145) mmol/L Potassium (3.5-5.0) mmol/L Chloride (101-111) mmol/L Carbon Dioxide (22-32) mmol/L Anion Gap (2-11) mmol/L BUN (6-24) mg/dL Creatinine (0.51-0.95) mg/dL Est GFR ( Amer) (>60) Est GFR (Non-Af Amer) (>60) BUN/Creatinine Ratio (8-20) Glucose (70-100) mg/dL Calcium (8.6-10.3) mg/dL Magnesium Total Bilirubin (0.2-1.0) mg/dL AST (13-39) U/L ALT (7-52) U/L Alkaline Phosphatase (34-104) U/L Troponin I 0.00 (<0.04) ng/mL B-Natriuretic Peptide 23 (<=100) pg/mL Total Protein (6.4-8.9) g/dL Albumin (3.2-5.2) g/dL Globulin (2-4) g/dL Albumin/Globulin Ratio (1-3) Result Diagrams: 01/16/19 06:48 01/16/19 06:48 Lab Statement: Any lab studies that have been ordered have been reviewed, and results considered in the medical decision making process. - Radiology CXR Radiology Interpretation Completed By: ED Physician Summary of Radiographic Findings: Cardiomegaly, no pleural effusions, no PNA, increased interstital markings. Pending offical review. - EKG 1631 Cardiac Rate: NL - 83 BPM EKG Rhythm: Sinus Rhythm ST Segment: Normal Ectopy: None Summary of EKG Findings: EKG at 1631 reveals normal sinus rhythm with rate of 83 BPM, no acute changes, no ischemic changes. No STEMI. This EKG was reviewed and interpreted by Dr. Tracy. Complex Multi-Symp Course/Dx Course Of Treatment: This pt is a 68 Y/O F, accompanied by her son, [facility] CC of SOB and CP this morning. Yesterday she had a fall but did not hit the ground or her head and landed between a chair and her couch. Her son states that she had CP that started at 1415 and states that she was slurring her speech. She states that her CP has resolved but she still has SOB. She has had increased edema in her R leg for the past month. She denies any fever, cough, nausea, diarrhea, vomiting, abdominal pain, and headaches. She has a PMHx of diabetes, thyroid disease, hypertension, and sleep apnea. Her PE found that she is obese and in no acute distress. Her abdomen is nontender, and she has +1 edema in her extremities. Hgb, Hct, absolute neuts, Absolute lymphs , INR, Sodium of 118 L, chloride, Glucose. EKG at 1631 reveals normal sinus rhythm with rate of 83 BPM, no acute changes, no ischemic changes. No STEMI. Her CXR found that she has Cardiomegaly, no pleural effusions, no PNA, increased interstital markings. Dr. Matt was consulted at 2155 for an evaluation for admission. Dr. Matt, Hospitalist, recommended repeating her BMP labs. She will be admitted to [facility] with a Dx of chest pain, SOB, hyponatremia , and hypomagnesium. - Diagnoses Provider Diagnoses: Hyponatremia, Hypomagnesemia, SOB (shortness of breath), Chest pain - Physician Notifications Discussed Care Of Patient With: Fredy Matt Time Discussed With Above Provider: 21:54 Instructed by Provider To: Admit As Inpatient Admit/Transition Orders Completed By ED Provider: Yes Discharge ED - Sign-Out/Discharge Documenting (check all that apply): Patient Departure - admitted All imaging exams completed and their final reports reviewed: Yes Patient Received Moderate/Deep Sedation with Procedure: No - Discharge Plan Condition: Good Disposition: ADMITTED TO [facility] - Billing Disposition and Condition Condition: GOOD Disposition: Admitted to [facility] - Attestation Statements Document Initiated by Belkis: Yes Documenting Scribe: Rony Deng Provider For Whom Belkis is Documenting (Include Credential): Maureen Tracy MD Scribe Attestation: Rony Rodrigues, scribed for Maureen Tracy MD on 01/18/19 at 1946. Scribe Documentation Reviewed: Yes Provider Attestation: The documentation as recorded by the Rony garcia accurately reflects the service I personally performed and the decisions made by me, Maureen Tracy MD Status of Scribe Document: Viewed
[2019-01-14] MEDS ORDERED: Magnesium Sulfate 2 GM IV* 2 GM/50 ML BAG IVPB ONE (21:47)
[2019-01-14] MEDS ORDERED: NS 0.9% 1000 ML** 1,000 ML IV ONE (21:48)
[2019-01-15 01:39] LABS: Calcium 9.2 mg/dL (8.6-10.3); EGFR African American 147.6 (>60); Potassium 3.8 mmol/L (3.5-5.0)
[2019-01-15] MEDS ORDERED: NS 0.9% 1000 ML** 1,000 ML IV SCH (04:30)
[2019-01-15 05:40] LABS: Anion Gap 6 mmol/L (2-11); BUN/Creatinine Ratio 16.3 (8-20); Blood Urea Nitrogen 8 mg/dL (6-24); CO2 Carbon Dioxide 27 mmol/L (22-32); Chloride 90 mmol/L (101-111); Cholesterol 65 mg/dL; EGFR African American 151.1 (>60); EGFR Non-African American 124.9 (>60); Glucose 182 mg/dL (70-100); HDL Cholesterol 37.9 mg/dL; LDL Cholesterol 14 mg/dL; Potassium 3.9 mmol/L (3.5-5.0); Sodium 123 mmol/L (135-145); Triglycerides 65 mg/dL
[2019-01-15 06:27] LABS: % Iron Saturation 8 % (15-55); Iron 38 ug/dL (50-212); Total Iron Binding Capacity 459 mcg/dL (250-450); Transferrin 328 mg/dL (203-362)
--- NOTE | 2019-01-15 06:34 | HP ---
CC: Dr. Mickie Fountain* ADMISSION HISTORY AND PHYSICAL: DATE OF ADMISSION: 01/15/19 CHIEF COMPLAINT: Shortness of breath and chest pain and feeling anxiety. HISTORY OF PRESENT ILLNESS: This is a 68-year-old female with past medical history of hypothyroidism; diabetes; hypertension; sleep apnea, on CPAP machine , which she has not used for the last 3 weeks, came in after she had sustained a fall day before yesterday. The son stated that she never hit the ground; she actually wedged herself between the furniture and the bed and did not lose consciousness; however, the patient has been getting a bit slurred speech with complaining of shortness of breath and chest pain and was having severe anxiety. So, son decided to bring the patient to the ER for further evaluation. Her chest pain had resolved, but she is still having some shortness of breath and dyspnea on exertion and at rest. Son also noted that the patient has been using the rest room over 18 to 20 times a day and always groans and moans because she has some severe pain with arthritis, so getting to and back from the bathroom has always been hard and the reason for the bathroom visit, she states it is for both urination and for bowel movements where she has some urgency and what sounds like some mild constipation that she may be having. She otherwise denies any fever, chills, any cough, any nausea, vomiting , or any diarrhea. No other abdominal pain. She also has some chronic lower extremity burning sensation, which could be just diabetic neuropathy. PAST MEDICAL HISTORY: As mentioned: 1. Diabetes. 2. Hypothyroidism. 3. Hypertension. 4. Osteoporosis. 5. Osteoarthritis. 6. Chronic low back pain due to spinal stenosis. 7. Dyslipidemia. 8. Obstructive sleep apnea, on CPAP machine. PAST SURGICAL HISTORY: Includes left-sided cataract removal. HOME MEDICATIONS: The patient is currently on: 1. Sertraline 25 mg oral daily. 2. Tylenol 500 mg every 4 hours p.r.n. 3. Losartan 50 mg once daily. 4. Aspirin 81 mg oral daily. 5. Crestor 10 mg oral daily. 6. Metformin 1000 mg oral twice a day. 7. Lyrica 75 mg oral daily. 8. Hydrochlorothiazide 25 mg oral daily. 9. Levothyroxine 75 mcg oral daily. 10. Cyclosporine drops 1 drops both eyes b.i.d. 11. Glyburide 5 mg oral daily. 12. Januvia 100 mg oral daily. ALLERGIES: No known drug allergies. SOCIAL HISTORY: The patient lives with her son. No other alcohol, smoking, or any illicit drug use. She is full code and her son is her healthcare proxy. FAMILY HISTORY: Noncontributory at her age. REVIEW OF SYSTEMS: A 14-point review of systems did not reveal any new information other than what is stated in the HPI. PHYSICAL EXAMINATION GENERAL: The patient is awake, alert, oriented x3, did not appear to be in any acute distress. VITAL SIGNS: In the ER, BP was noted to be 144/74, heart rate 69, respiratory rate 22, saturating 97% on room air, temperature documented at 97.9. HEAD AND NECK: Atraumatic, normocephalic. Bilateral pupils are reactive. Oral mucosa was moist. Neck: Supple. No jugular venous distention. LUNGS: Clear to auscultation bilaterally. No wheezing, rhonchi, or rales. HEART: S1, S2. Regular rate and rhythm. There was a systolic murmur heard. ABDOMEN: Soft, nontender, nondistended. EXTREMITIES: The patient had some mild pitting edema in the lower extremities. DIAGNOSTIC STUDIES/LAB DATA: CBC shows normal white count, mild anemia with hemoglobin of 11.1, hematocrit of 32. Coagulation profile shows INR of 1.1. Comprehensive metabolic panel shows sodium of , potassium 4.2, chloride 83 , random glucose is noted to be elevated at 230. Magnesium was also noted to be low at 1.3. Three sets of cardiac enzymes were negative. Her repeat BMP showed sodium improved to 121 and serum osmolality was noted to be at 258. Urinalysis was still pending; however, urine osmolality was 295 and urine sodium concentration was 65. PA, lateral chest x-ray was noted to be within normal limits. Official read by Radiology is still pending. There are some shadows, but basically it was due to her body habitus and obesity. Single EKG was performed. There is no old EKG to compare. This EKG showed normal sinus rhythm at 83 beats per minute without any ST segment changes. IMPRESSION: This is a 68-year-old female here with shortness of breath and chest pain, some exertional dyspnea, and hyponatremia with increased urination. ASSESSMENT AND PLAN: 1. Hypoosmolar hyponatremia. Unclear if this is a component of polydipsia. We will start the patient on gentle IV hydration and get serial BMPs. If the patient's BMP does not improve, we can consider further speciality support with a slope runner to help us adjust her sodium appropriately. 2. Shortness of breath and chest pain. Rule out any unstable angina. 3. Congestive heart failure. We will get an echocardiogram and a stress test in the morning. 4. History of diabetes. We will hold p.o. medications and start the patient on fingerstick monitoring and consider insulin sliding scale with aspart. We will check an A1c level. 5. History of dyslipidemia. Restart her Crestor. We will check a lipid panel. 6. History of hypothyroidism. We will check TSH and restart her levothyroxine. 7. History of hypertension. We will hold her hydrochlorothiazide and also her losartan in light of her low normal blood pressures in the ER. Once her blood pressure improves, we can consider restarting the losartan; however, hydrochlorothiazide we will keep holding until her sodium improves as well. 8. Chronic low back pain, on pain medications. 9. Obstructive sleep apnea. We will start the patient on CPAP nightly. 10. DVT prophylaxis with Lovenox. 11. Code status: Full code. [id number]/[facility] [place] #: [id number] MTDD
[2019-01-15 06:49] LABS: Folate > 20.00 ng/mL (>3.99)
[2019-01-15] MEDS: Enoxaparin(*) 40 MG/0.4 ML SYR SUBCUT SCH ×3 (07:34→10:19)
[2019-01-15] MEDS: Levothyroxine TAB* 75 MCG TAB PO SCH (07:50)
[2019-01-15] MEDS: Pregabalin CAP(*) 25 MG PO SCH (08:17)
[2019-01-15] MEDS: Aspirin EC TAB* 81 MG TAB.EC PO SCH (08:18)
[2019-01-15] MEDS: Atorvastatin* 20 MG TAB PO SCH (08:18)
[2019-01-15] MEDS: Insulin LISPRO* 1 UNITS UNIT SUBCUT SCH ×4 (08:42→22:34)
[2019-01-15] MEDS: CMC:Cyclosporine 0.05% OPHTH (NF) 0.4 ML VIAL BOTH EYES SCH ×2 (09:11→22:37)
[2019-01-15 09:18] LABS: Urine Appearance Clear; Urine Bacteria Absent (Absent); Urine Bilirubin Negative (Negative); Urine Blood Negative (Negative); Urine Color Straw; Urine Glucose Negative (Negative); Urine Ketones Negative (Negative); Urine Nitrite Negative (Negative); Urine Protein Negative (Negative); Urine Red Blood Cell Trace(0-2/hpf) (Absent); Urine Specific Gravity 1.006 (1.010-1.030); Urine Squamous Epithelial Cell Present (Absent); Urine Urobilinogen Negative (Negative); Urine White Blood Cell Trace(0-5/hpf) (Absent)
[2019-01-15] MEDS: Acetaminophen TAB* 325 MG PO PRN (12:16)
[2019-01-15] MEDS: Lidocaine 2% JELLY* 6 ML JELLY TOPICAL SCH ×2 (12:53→22:34)
[2019-01-15 14:01] LABS: BUN/Creatinine Ratio 14.6 (8-20); Calcium 9.1 mg/dL (8.6-10.3); EGFR African American 154.7 (>60); EGFR Non-African American 127.9 (>60); Potassium 3.9 mmol/L (3.5-5.0)
--- NOTE | 2019-01-15 14:02 | ECHO ---
*[facility]* [place] [address] Fax #: [phone] Transthoracic Echocardiogram Patient: Luisa Brown : 1950 Study Date: 01/15/2019 Age: 68 Gender: F HR: 64 bpm Height: 66 in /167.6 cm BSA: 2.12 m^2 Weight: 204.6 lb /93 kg BMI: 33.1 kg/m^2 *Data Power Consultant: Concha Carlos [facility] *Referring Physician: * Fredy Matt *Reading Physician: * Lan Kerns MD Indications: SOB. History: Murmur. Risk factors: Hypertension. Diabetes mellitus. Dyslipidemia. Conclusions Summary: - Left ventricle: The cavity size is normal. Wall thickness is mildly increased. Systolic function is normal. The estimated ejection fraction is 60-65%. Wall motion is normal; there are no regional wall motion abnormalities. - Normal cardiac chamber sizes. - Functionally benign heart valves. - There is no prior echocardiogram available to compare with at this time. Study data: Transthoracic echocardiogram. Procedure: Transthoracic echocardiography was performed. Image quality was fair. Complete 2D, spectral Doppler, and color flow Doppler. Location: Bedside. Patient status: Inpatient. Patient room number: 447 01. Rhythm: Normal sinus rhythm. Findings Left ventricle: The cavity size is normal. Wall thickness is mildly increased. Systolic function is normal. The estimated ejection fraction is 60-65%. Wall motion is normal; there are no regional wall motion abnormalities. There is no consistent Doppler evidence of clinically significant diastolic dysfunction. Right ventricle: The cavity size is normal. Systolic function is normal. Left atrium: The atrium is normal in size. Right atrium: The atrium is normal in size. Mitral valve: The leaflets are mildly thickened. There is no evidence of stenosis. There is no significant regurgitation. Aortic valve: The leaflets are mildly thickened. There is no evidence of stenosis. There is no significant regurgitation. Tricuspid valve: The leaflets are normal thickness. There is trace regurgitation. Pulmonic valve: Not well visualized. There is no evidence of stenosis. There is no significant regurgitation. Aorta: The aortic root appears normal. The aortic arch appears normal. The ascending aorta appears normal. Pericardium: There is no significant pericardial effusion. Pulmonary arteries: Not well visualized. Systolic pressure is within the normal range. Systemic veins: Inferior vena cava: The vessel is normal in size. There is (>= 50%) respiratory change in the IVC dimension. Measurements Left ventricle Value Ref Aortic valve continued Value Ref MICK, LAX 4.2 cm 3.8 - 5.2 Peak grad, S 10.5 mm Hg ----- ESD, LAX 2.3 cm 2.2 - 3.5 LVOT/AV, VTI ratio 0.7 ----- FS, LAX 45 % 27 - 45 PW, ED, LAX (H) 1.2 cm 0.6 - 0.9 Mitral valve Value Ref EF (H) 77 % 54 - 74 Peak E 0.86 m/sec ----- E', lat sunil, TDI (L) 8.0 cm/sec >=10.0 Peak A 1.07 m/sec - ---- E/e', lat sunil, TDI 11 --------- VTI leaflet coapt 35.4 cm ---- - E', med sunil, TDI (L) 6.0 cm/sec >=7.0 Decel time 227 ms - ---- E/e', med sunil, TDI 14 --------- PHT 80 ms ---- - E', avg, TDI 7.0 cm/sec --------- Mean grad, D 1.9 mm Hg ---- - E/e', avg, TDI 12 <=14 Peak grad, D 4.7 mm Hg - ---- Peak E/A ratio 0.81 ----- LVOT Value Ref MVA, PHT 2.7 cm^2 ----- Peak galen, S 1.13 m/sec --------- VTI, S 26.0 cm --------- Pulmonic valve Value Ref Peak grad, S 5 mm Hg --------- Peak v, S 0.73 m/sec ----- Mean grad, S 3 mm Hg --------- Peak grad, S 2.2 mm Hg ----- Ventricular septum Value Ref Tricuspid valve Value Ref IVS, ED (H) 1.0 cm 0.6 - 0.9 TR peak v 2.72 m/sec <=2.8 Peak RV-RA grad, S 30 mm Hg ----- Right ventricle Value Ref MICK major ax, A4C (L) 3.3 cm 5.9 - 8.3 Aortic root Value Ref Pressure, S 33 mm Hg --------- Root diam 1.8 cm <4.2 Left atrium Value Ref Ascending aorta Value Ref LA ID 3.6 cm --------- AAo AP diam, S 2.2 cm ----- ML dim, A4C 2.9 cm --------- SI dim, A4C 5.2 cm --------- Aortic arch Value Ref Vol/bsa, ES, 2-p 27 ml/m^2 16 - 34 Arch diam 2.1 cm ----- Right atrium Value Ref Decending aorta Value Ref SI dim, ES 4.5 cm 3.4 - 5.3 Carlos peak galen 0.75 m/sec ----- ML dim, ES, A4C 3.1 cm 2.6 - 4.4 Estimated RAP 3 mm Hg --------- Pulmonary artery Value Ref Pressure, S 30.9 mm Hg ----- Aortic valve Value Ref Peak v, S 1.62 m/sec --------- Inferior vena cava Value Ref VTI, S 37.1 cm --------- Diam 1.7 cm ----- Mean grad, S 5.7 mm Hg --------- Legend: (L) and (H) magdaleno values outside specified reference range. Prepared and electronically signed by Lan Kerns MD 01/15/2019 14:01
[2019-01-15] MEDS ORDERED: Regadenoson* 0.4 MG/5 ML SYRINGE ONE (14:55)
[2019-01-15 17:08] LABS: BUN/Creatinine Ratio 13.7 (8-20); Calcium 8.9 mg/dL (8.6-10.3); EGFR African American 144.3 (>60); EGFR Non-African American 119.2 (>60); Potassium 4.1 mmol/L (3.5-5.0)
--- NOTE | 2019-01-15 17:53 | PN ---
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 No SOB or chest pain now. Objective Active Medications: Acetaminophen (Tylenol Tab*) 487.5 mg PO Q4H PRN PRN Reason: PAIN Last Admin: 01/15/19 12:16 Dose: 487.5 mg Aspirin (Aspirin Ec Tab*) 81 mg PO DAILY [facility] Last Admin: 01/15/19 08:18 Dose: 81 mg Atorvastatin Calcium (Lipitor*) 20 mg PO DAILY [facility]; Protocol Last Admin: 01/15/19 08:18 Dose: 20 mg Cyclosporine (Restasis 0.05% Oph) 1 drop BOTH EYES BID [facility]; Protocol Last Admin: 01/15/19 09:11 Dose: 1 drop Enoxaparin Sodium (Lovenox(*)) 40 mg SUBCUT 0800 [facility] Last Admin: 01/15/19 08:43 Dose: 40 mg Glyburide (Diabeta Tab*) 5 mg PO DAILY [facility] Sodium Chloride (Ns 0.9% 1000 Ml) 1,000 mls @ 75 mls/hr IV PER RATE [facility] Last Admin: 01/15/19 06:37 Dose: 75 mls/hr Insulin Human Lispro (Humalog*) 0 units SUBCUT ACHS [facility]; Protocol Last Admin: 01/15/19 17:18 Dose: 6 unit Levothyroxine Sodium (Synthroid Tab*) 75 mcg PO 0600 [facility] Last Admin: 01/15/19 07:50 Dose: 75 mcg Lidocaine HCl (Lidocaine 2% Jelly*) 1 applic TOPICAL TID [facility] Last Admin: 01/15/19 12:53 Dose: 1 applic Metformin HCl (Glucophage*) 1,000 mg PO BID [facility] Pregabalin (Lyrica Cap(*)) 75 mg PO DAILY [facility] Last Admin: 01/15/19 08:17 Dose: 75 mg Vital Signs - 8 hr 01/15/19 01/15/19 01/15/19 11:12 12:21 13:00 Temperature 97.9 F Pulse Rate 70 Respiratory 18 18 Rate Blood Pressure 96/64 120/65 (mmHg) O2 Sat by Pulse 97 Oximetry 01/15/19 01/15/19 01/15/19 13:13 14:00 16:00 Temperature Pulse Rate Respiratory 18 17 17 Rate Blood Pressure (mmHg) O2 Sat by Pulse Oximetry Oxygen Devices in Use Now: None Exam: General - NAD, sitting up in bed Eyes - PERRLA, EOM intact HEENT- no abnormality Cardiovascular - RRR, heart distant, no JVD, no carotid bruits Lungs - Clear to auscltation, no use of acessory muscles, no crackles or wheezes. Skin - No rashes, skin warm and dry, no erythematous areas Abdomen - Normal bowel sounds, abdomen soft and nontender Extremities - No edema, cyanosis or clubbing Musculo Skeletal - 5/5 strength, normal range of motion, no swollen or erythematous joints. Neurological Alert and oriented x 3, CN 2-12 grossly intact. Psychiatry-cheerful Result Diagrams: 01/14/19 17:08 01/15/19 16:40 Additional Lab and Data: Lab Results 01/14/19 01/14/19 01/14/19 Range/Units 17:08 17:08 17:08 WBC 9.7 (3.5-10.8) 10^3/uL RBC 3.90 (3.70-4.87) 10^6 /uL Hgb 11.1 L (12.0-16.0) g/dL Hct 32 L (35-47) % MCV 83 (80-97) fL MCH 29 (27-31) pg MCHC 34 (31-36) g/dL RDW 15 (10-15) % Plt Count 242 (150-450) 10^3/uL MPV 8.7 (7.4-10.4) fL Neut % (Auto) 85.1 % Lymph % (Auto) 6.9 % [place] % (Auto) 6.6 % Eos % (Auto) 1.1 % Baso % (Auto) 0.3 % Absolute Neuts (auto) 8.2 H (1.5-7.7) 10^3/ul Absolute Lymphs (auto) 0.7 L (1.0-4.8) 10^3/ul Absolute Monos (auto) 0.6 (0-0.8) 10^3/ul Absolute Eos (auto) 0.1 (0-0.6) 10^3/ul Absolute Basos (auto) 0.0 (0-0.2) 10^3/ul Absolute Nucleated RBC 0.0 10^3/ul Nucleated RBC % 0.0 INR (Anticoag Therapy) 1.11 H (0.82-1.09) Sodium 118 L* (135-145) mmol/L Potassium 4.2 (3.5-5.0) mmol/L Chloride 83 L (101-111) mmol/L Carbon Dioxide 27 (22-32) mmol/L Anion Gap 8 (2-11) mmol/L BUN 11 (6-24) mg/dL Creatinine 0.57 (0.51-0.95) mg/dL Est GFR ( Amer) 126.9 (>60) Est GFR (Non-Af Amer) 104.9 (>60) BUN/Creatinine Ratio 19.3 (8-20) Glucose 230 H (70-100) mg/dL Calcium 9.8 (8.6-10.3) mg/dL Magnesium Pending Total Bilirubin 0.60 (0.2-1.0) mg/dL AST 27 (13-39) U/L ALT 33 (7-52) U/L Alkaline Phosphatase 54 (34-104) U/L Troponin I 0.00 (<0.04) ng/mL B-Natriuretic Peptide (<=100) pg/mL Total Protein 6.9 (6.4-8.9) g/dL Albumin 4.1 (3.2-5.2) g/dL Globulin 2.8 (2-4) g/dL Albumin/Globulin Ratio 1.5 (1-3) 01/14/19 01/14/19 Range/Units 17:08 20:38 WBC (3.5-10.8) 10^3/uL RBC (3.70-4.87) 10^6 /uL Hgb (12.0-16.0) g/dL Hct (35-47) % MCV (80-97) fL MCH (27-31) pg MCHC (31-36) g/dL RDW (10-15) % Plt Count (150-450) 10^3/uL MPV (7.4-10.4) fL Neut % (Auto) % Lymph % (Auto) % [place] % (Auto) % Eos % (Auto) % Baso % (Auto) % Absolute Neuts (auto) (1.5-7.7) 10^3/ul Absolute Lymphs (auto) (1.0-4.8) 10^3/ul Absolute Monos (auto) (0-0.8) 10^3/ul Absolute Eos (auto) (0-0.6) 10^3/ul Absolute Basos (auto) (0-0.2) 10^3/ul Absolute Nucleated RBC 10^3/ul Nucleated RBC % INR (Anticoag Therapy) (0.82-1.09) Sodium (135-145) mmol/L Potassium (3.5-5.0) mmol/L Chloride (101-111) mmol/L Carbon Dioxide (22-32) mmol/L Anion Gap (2-11) mmol/L BUN (6-24) mg/dL Creatinine (0.51-0.95) mg/dL Est GFR ( Amer) (>60) Est GFR (Non-Af Amer) (>60) BUN/Creatinine Ratio (8-20) Glucose (70-100) mg/dL Calcium (8.6-10.3) mg/dL Magnesium Total Bilirubin (0.2-1.0) mg/dL AST (13-39) U/L ALT (7-52) U/L Alkaline Phosphatase (34-104) U/L Troponin I 0.00 (<0.04) ng/mL B-Natriuretic Peptide 23 (<=100) pg/mL Total Protein (6.4-8.9) g/dL Albumin (3.2-5.2) g/dL Globulin (2-4) g/dL Albumin/Globulin Ratio (1-3) Assess/Plan/Problems-Billing Assessment: 68 yo female with history of DM, hypothyroidism, HTN, HLD, sleep apnea on CPAP recently ceased due to broken mask , presented with SOB, dypnea on exertion. Her course also complicated by Hypovolemic hypoNa which is likely induced by new initiation of thiazide. - Patient Problems (1) Dyspnea Current Visit: Yes Status: Acute Code(s): R06.00 - DYSPNEA, UNSPECIFIED SNOMED Code(s): 383564347 Comment: -Cardiac cause of dyspnea was worked up ACS ruled out with neg Trop and ECG, stress test showed low risk, Echo no abnormality found - respiratory cause of dyspnea: CXR unremarkable except right hilar shadow ? lymphadenopathy, CT scan can be followed - Anxiety is likely the other most likely cause since the above investigation neg (2) Hyponatremia Current Visit: Yes Status: Acute Code(s): E87.1 - HYPO-OSMOLALITY AND HYPONATREMIA SNOMED Code(s): 81590287 Comment: Hypovolemic hyponatremia likely thiazide induced pt responds to fluid repleteion stop thiazide (3) T2DM (type 2 diabetes mellitus) Current Visit: Yes Status: Acute Comment: Continue old med except Januvia start sliding scale (4) DVT prophylaxis Current Visit: Yes Status: Acute Code(s): Z29.9 - ENCOUNTER FOR PROPHYLACTIC MEASURES, UNSPECIFIED SNOMED Code(s): 334703926 Comment: SQ Lovenox Status and Disposition: Inpatient Medicine Attestation Documenting Resident: Laura Fonseca Supervising Physician: Otilio Cantrell Attending/Supervising Physician Comment: Agree with plan as outlined in note from Dr. Fonseca unless noted here. Hyponatremia suspected in setting of HCTZ. Improved with NS. Repeat tomorrow ALVAREZ with normal stress and TTE. Suspect deconditioning as well as lack of CPAP at home Treat low sodium and reassess tomorrow Attestation: This service has been performed in part by a resident under the direction of a teaching physician.I, Otilio Cantrell, performed the service, or was physically present during the critical, or sin portions of the service, furnished by the resident. I participated in the management of the patient.
[2019-01-15 20:28] LABS: Calcium 8.5 mg/dL (8.6-10.3); EGFR African American 147.6 (>60); Potassium 3.9 mmol/L (3.5-5.0)
[2019-01-15] MEDS: metFORMIN* 1,000 MG TAB PO SCH (22:37)
[2019-01-16] MEDS ORDERED: diPHENhydraMINE PO* 50 MG PO ONE (00:55)
[2019-01-16] MEDS: Acetaminophen TAB* 325 MG PO PRN ×2 (03:20→07:30)
[2019-01-16] MEDS: Levothyroxine TAB* 75 MCG TAB PO SCH (05:30)
[2019-01-16 07:23] LABS: ABS Eosinophils 0.2 10^3/ul (0-0.6); ABS Lymphocytes 1.3 10^3/ul (1.0-4.8); ABS Monocytes 0.6 10^3/ul (0-0.8); ABS Neutrophils 6.4 10^3/ul (1.5-7.7); Eosinophil % 2.6 %; Hematocrit 32 % (35-47); Hemoglobin 10.8 g/dL (12.0-16.0); Lymphocyte % 14.7 %; Mean Corpuscular HGB Conc 34 g/dL (31-36); Mean Corpuscular Hemoglobin 28 pg (27-31); Mean Corpuscular Volume 84 fL (80-97); Mean Platelet Volume 8.6 fL (7.4-10.4); Nucleated Red Blood Cells % 0.1; Platelet Count 252 10^3/uL (150-450); Red Blood Count 3.81 10^6 /uL (3.70-4.87); Red Cell Distribution Width 15 % (10-15); White Blood Count 8.5 10^3/uL (3.5-10.8)
[2019-01-16] MEDS: Enoxaparin(*) 40 MG/0.4 ML SYR SUBCUT SCH (07:32)
[2019-01-16 07:37] LABS: BUN/Creatinine Ratio 17.6 (8-20); Calcium 8.7 mg/dL (8.6-10.3); EGFR African American 144.3 (>60); EGFR Non-African American 119.2 (>60)
[2019-01-16] MEDS: Insulin LISPRO* 1 UNITS UNIT SUBCUT SCH ×2 (07:38→11:41)
[2019-01-16] MEDS ORDERED: glyBURIDE TAB* 5 MG PO SCH (09:00)
[2019-01-16] MEDS ORDERED: Sertraline* 25 MG TAB PO SCH (09:00)
[2019-01-16] MEDS: Pregabalin CAP(*) 25 MG PO SCH (09:03)
[2019-01-16] MEDS: Atorvastatin* 20 MG TAB PO SCH (09:04)
[2019-01-16] MEDS: Aspirin EC TAB* 81 MG TAB.EC PO SCH (09:04)
[2019-01-16] MEDS: metFORMIN* 1,000 MG TAB PO SCH (09:04)
[2019-01-16] MEDS: CMC:Cyclosporine 0.05% OPHTH (NF) 0.4 ML VIAL BOTH EYES SCH (09:05)
[2019-01-16] MEDS: Lidocaine 2% JELLY* 6 ML JELLY TOPICAL SCH ×2 (09:06→14:14)
[2019-01-16] MEDS ORDERED: Magnesium CITRATE* 300 ML BTL PO ONE (09:44)
[2019-01-16 12:12] VITALS: BP 122/61
--- NOTE | 2019-01-16 17:05 | DS ---
CC: Dr. Mickie Fountain * DISCHARGE SUMMARY: DATE OF ADMISSION: 01/15/19 DATE OF DISCHARGE: 01/16/19 PRIMARY CARE PROVIDER: Dr. Mickie Fountain. DISPOSITION ON DISCHARGE: Home. CONDITION ON DISCHARGE: Good. PRIMARY DIAGNOSIS: Hyponatremia. SECONDARY DIAGNOSES: Include: 1. Obstructive sleep apnea, not using CPAP for last 3 weeks while waiting for a CPAP mask. 2. Anxiety. 3. Diabetes. 4. Hypothyroidism. 6. Hypertension. 7. Osteoporosis. 8. Chronic pain. 9. Hyperlipidemia. MEDICATIONS ON DISCHARGE: Include: 1. Zoloft 25 mg daily. 2. Acetaminophen 500 mg every 4 hours for pain. 3. Losartan 50 mg daily. 4. Aspirin 81 mg daily. 5. Rosuvastatin 10 mg daily. 6. Metformin 1000 mg twice daily. 7. Lyrica 75 mg daily. 8. Levothyroxine 75 mcg. 9. Cyclosporine eye drops 1 drop both eyes twice daily. 10. Glyburide 5 mg daily. 11. Sitagliptin 100 mg daily. 12. Lidocaine 2% gel 1 application topically twice daily as needed for pain or pruritus in her feet, new addition of lidocaine. PERTINENT LABORATORY VALUES: Sodium on presentation 118 and is 133 on discharge. Hemoglobin A1c is 8.3%. Troponin I 0.00. TSH is 3.15. B12 of 603, folate greater than 20. LDL is 14, HDL is 76, triglycerides are 65, total cholesterol is 65. Serum osmolality is 268. Urine culture is mixed huma, possible contamination. IMAGING AND PROCEDURES: Nuclear medicine chemical stress with nuclear imaging low risk. Transthoracic echocardiogram, LVEF 60% to 65%, no evidence of diastolic dysfunction, normal cardiac chamber sizes, functionally benign heart valves. HISTORY OF PRESENT ILLNESS AND HOSPITAL COURSE: A 68-year-old female with past medical history as outlined in the history of present illness, who on the day of admission noted to not have been using her CPAP machine at home for the last 3 weeks since they are waiting for new one to arrive any day, but they thought it would be arriving today, who had been feeling more malaise walking to the bathroom, had an episode of fall without loss of consciousness, associated with increased shortness of breath and chest discomfort, associated with severe anxiety the day prior to presentation for which she presented to the emergency room. Because of the shortness of breath and chest pain, the patient underwent a cardiac workup, had a negative stress test and a benign transthoracic echocardiogram as indicated above. Of note, the patient was also noted to have hyponatremia on presentation with a sodium ольга of 118 on presentation. The patient had been recently started on hydrochlorothiazide approximately 1 month prior to presentation for lower extremity swelling per the patient's report. This medication was discontinued. She received normal saline and her sodium corrected to 133 on the day of discharge. Suspect hydrochlorothiazide contributing to the patient's hyponatremia, unknown cause. In the absence of hydrochlorothiazide while in the hospital, the patient's blood pressure was 122/ 61 at the time of discharge, also suggesting she may have been relatively hypotensive at home on hydrochlorothiazide at the time of her stumble and fall as her blood pressure was quite well controlled in its absence while in the hospital. Ultimately, I think the combination of untreated sleep apnea while waiting for her mask in conjunction with hyponatremia and potentially hypotension, which is unverified, on hydrochlorothiazide contributed to the patient's increased malaise and shortness of breath. On the day of discharge, she felt back to her baseline. She had no shortness of breath, no chest discomfort, no anxiety. I note the patient did receive insulin during the course of her hospital stay for hyperglycemia, her hemoglobin A1c is 8.3%. Consideration to additional agents should be made upon discharge. At followup, please: 1. Follow sodium at appropriate interval. 2. Consider additional agents for diabetes management. 3. No other specific labs or vitals that need followup at the time of discharge. Reasons to return to the hospital including, but not limited to recurrent or worsening symptoms, chest pain, shortness of breath, nausea, vomiting, light headedness, loss of conscious or near loss of consciousness, inability to obtain or tolerate medications discussed with the patient. TIME SPENT: Greater than 60 minutes was spent on discharge of this patient, greater than half was spent [id number] with the patient and her son. [id number]/[facility] #: [id number] IJEOMA
== END 2019-01-16 15:00 | disposition home or self-care (01) | DRG 425 ==
LOC: ED 16:27 → MEDTELE 01-15 04:21
PROVIDERS: ADMIT Internal Medicine; ATTEND Internal Medicine
PROC: 4A02XM4 Measurement of Cardiac Total Activity, External Approach (ICD-10-PCS; principal; 2019-01-15)
DX: E87.1 Hypo-osmolality and hyponatremia (principal); G47.33 Obstructive sleep apnea (adult) (pediatric); I10 Essential (primary) hypertension; E78.00 Pure hypercholesterolemia, unspecified; M48.061 Spinal stenosis, lumbar region without neurogenic claudication; M43.10 Spondylolisthesis, site unspecified; E11.39 Type 2 diabetes mellitus with other diabetic ophthalmic complication; H42 Glaucoma in diseases classified elsewhere; E66.9 Obesity, unspecified; E83.42 Hypomagnesemia; E03.9 Hypothyroidism, unspecified; M81.0 Age-related osteoporosis without current pathological fracture; R07.9 Chest pain, unspecified; E11.42 Type 2 diabetes mellitus with diabetic polyneuropathy; T50.2X5A Adverse effect of carbonic-anhydrase inhibitors, benzothiadiazides and other diuretics, initial encounter; G89.29 Other chronic pain; E78.5 Hyperlipidemia, unspecified; M19.90 Unspecified osteoarthritis, unspecified site; F41.9 Anxiety disorder, unspecified; D64.9 Anemia, unspecified; Z68.36 Body mass index [BMI] 36.0-36.9, adult; Z98.42 Cataract extraction status, left eye; Z98.41 Cataract extraction status, right eye; Z79.82 Long term (current) use of aspirin; Z79.84 Long term (current) use of oral hypoglycemic drugs; Y92.009 Unspecified place in unspecified non-institutional (private) residence as the place of occurrence of the external cause
CPT/HCPCS: 36415; 71046; 78452; 80048; 80053; 80061; 81003; 81015; 82607; 82728; 82746; 82947; 83036; 83540; 83550; 83735; 83880; 83930; 83935; 84300; 84443; 84484; 85025; 85610; 87086; 93005; 93017; 93306; 94660; 99284; A9270-GY; A9502; G8978-GP-CJ; G8979-GP-CI; J1650; J2785; J3475

== ENCOUNTER 2019-02-22 05:27 | Emergency (ER) | payer MEDICAID ==
--- OUTSIDE RECORDS SUMMARY | 2019-02-22 05:48 | XMS REPORT | Continuity of Care Document ---
:1950 External Reference #:[id number] Author Name Mickie Fountain MD (transmitted by agent of provider Radha Rai) Address [address] [facility], [place] [address] Care Team Providers Name Role Phone Linda Espinosa DPM - Dairy Lab Technician Care Team Information Air Bag Stripper [phone] Regla Rolon MD - Pulmonary Care Team Information Air Bag Stripper Disease [facility] - Care Team Information Air Bag Stripper Back Shoe Cutter Morena Lopez MD - Obstetrics & Care Team Information Air Bag Stripper Gynecology Connor Guzman M.D. - Care Team Information Air Bag Stripper [phone] Urology Mickie Fountain MD - Internal Medicine Care Team Information Air Bag Stripper Problems Active Problems Provider Date Diabetes mellitus Fly Chapman M.D. Onset: 02/24/2015 Essential hypertension Fly Cahpman M.D. Onset: 02/24/2015 Hyperlipidemia Fly Chapman M.D. Onset: 02/24/2015 Hypothyroidism Fly Chapman M.D. Onset: 02/24/2015 Spinal stenosis of lumbar region Bruno Dunn M.D. Onset: 03/27/2015 Lumbar spondylolisthesis Bruno Dunn M.D. Onset: 03/27/2015 Disturbance in sleep behavior Regla Rolon MD Onset: 01/11/2016 Obesity Regla Rolon MD Onset: 01/11/2016 Obstructive sleep apnea syndrome Regla Rolon MD Onset: 04/25/2016 Type II diabetes mellitus uncontrolled Mickie Fountain MD Onset: 08/11/2018 Lumbar spondylolisthesis Mickie Fountain MD Onset: 12/17/2018 Social History Type Date Description Comments Sex Unknown Tobacco Use Start: Unknown Never Smoked Cigarettes Smoking Status Reviewed: 01/26/19 Never Smoked Cigarettes ETOH Use Never used alcohol Recreational Drug Use Denies Drug Use Tobacco Use Start: Unknown Patient has never smoked Exercise Type/Frequency Does not exercise Allergies, Adverse Reactions, Alerts Description No Known Drug Allergies Medications Active Medications SIG Qnty Indications Ordering Date Provider Pregabalin take 1 capsule by 180caps Mickie Fountain MD 01/26/2019 75mg mouth twice a day Capsules Levothyroxine Sodium 1 by mouth every 30tabs Mickie Fountain MD 12/18/2018 day 75mcg Tablets Raised Toilet use to assist pt. 1units M43.16 Mickie Fountain MD 12/18/2018 Seat/Lock & Arms with rising after toilet use Misc Glyburide Take 1 Tablet By 30tabs Mickie Fountain MD 10/30/2018 5mg Tablets Mouth Every Day Januvia 1 by mouth every 90tabs Mickie Fountain MD 10/16/2018 100mg Tablets day Incontinence Brief change as needed 200units N39.46 Miller Powers NP 2018 Large due to incontinence Misc per 30 days - women's large Disposable Underpads per 30 days, use as 240units N39.46 Miller Powers NP needed Gloves per 30 days, use as 1Box N39.46 Miller Powers NP 09/22/2018 needed due to incontinence Basaglar Kwikpen 20 units sc at 3ml E11.65 Mickie Fountain MD 08/11/2018 bedtime 100Unit/ML Solution Pen-Inject SB Naproxen Sodium take one tablet 20tabs Mickie Fountain MD 05/28/2018 every 12 hours as 220mg Tablets needed Depend Adjustable use four times a 120units Mickie Fountain MD 04/29/2018 Underwear L/XL day Misc Metformin HCL 1 by mouth twice a 180tabs Mickie Fountain MD 12/09/2017 1000mg day Tablets Acetaminophen Extra Take 1 Tablet By 120tabs M70.61 Mickie Fountain MD 2015 Strength Mouth Every 4 Hours 500mg as Needed For Pain Tablets Restasis as directed Unknown 01/03/2016 0.05% Emulsion Fluticasone 2 sprays each 16gm Mickie Fountain MD 12/25/2015 Propionate nostril daily as 50mcg/Act needed Suspension Losartan Potassium 1 by mouth every 90tabs I10 Mickie Fountain MD 02/24/2015 day 50mg Tablets Crestor 1 by mouth every 90tabs E78.4 Artur Andrews 10mg Tablets day Ulises Gregory Calcium 500+D 1 by mouth a day 90tabs Mickie Fountain MD [id number] Tablets Aspirin 1 by mouth every 90tabs Artur Andrews 81mg Tablets day Ulises Gregory DR Vitamin B Complex 1 by mouth every Unknown day Tablets History Medications Hydrochlorothiazide 1 by mouth 30tabs I10 Mickie Fountain 12/17/2018 - 25mg Tablets every day 01/26/2019 Immunizations CPT Code Status Date Vaccine Lot # [id number] Given 03/17/2017 Influenza Virus Vaccine, Quadrivalent, Split, [id number] Preservative Free [id number] Given 09/16/2016 Pneumonia Vaccine [id number] 20753 Given 02/28/2016 Influ Virus Vaccine, Quadrivalent, Split Virus, [place] [id number] [id number] Given 08/14/2015 Tdap - Tetanus/Diptheria/Acellular Pertussis [id number] 31663 Given 08/14/2015 Pneumococcal Conjugate Vaccine 13 Valent For [id number] Intramuscular Use 16739 Given 02/24/2015 Influenza Virus Vaccine, Quadrivalent, Split, [id number] Preservative Free Vital Signs Date Vital Result Comment 01/26/2019 10:04am Height 62.5 inches 5'2.50" Heart Rate 60 /min BP Systolic Sitting 121 mmHg BP Diastolic Sitting 75 mmHg Body Temperature 97.0 F O2 % BldC Oximetry 98 % 12/17/2018 11:32am Height 62.5 inches 5'2.50" Weight 232.00 lb Heart Rate 63 /min BP Systolic 155 mmHg BP Diastolic 84 mmHg Body Temperature 97.7 F O2 % BldC Oximetry 96 % BMI (Body Mass Index) 41.8 kg/m2 Results Test Date Facility Test Result H/L Range Note Basic Metabolic 01/15/2019 [facility] Sodium 121 mmol/L Low 135-[address] [place] [address] [phone] Potassium 3.8 mmol/L Normal 3.5-5.0 Chloride 87 mmol/L Low 101-111 Co2 Carbon Dioxide 27 mmol/L Normal 22-32 Anion Gap 7 mmol/L Normal 2-11 Glucose 270 mg/dL High 70-100 Blood Urea Nitrogen 9 mg/dL Normal 6-24 Creatinine 0.50 mg/dL Low 0.51-0.95 BUN/Creatinine Ratio 18.0 Normal 8-20 Calcium 9.2 mg/dL Normal 8.6-10.3 Egfr Non- 122.0 >60 Egfr 147.6 >60 1 Laboratory 01/15/2019 [facility] Osmolality 295 Normal 100- 1[address] Urine mOsm/[place] [address] [phone] Osmolality Serum 268 mOsm/kg Low 275-295 Laboratory test 01/15/2019 [facility] Sodium Random 65 mmol/L finding [address] [place] [address] [phone] Laboratory test 01/14/2019 [facility] Troponin-I 0.00 ng/mL < 0.[address] (TnI) [place] [address] [phone] Magnesium 1.3 mg/dL Low 1.9-2.7 Comp Metabolic 01/14/2019 [facility] Potassium 4.2 mmol/L Normal 3.5-5.[address] [place] [address] [phone] Chloride 83 mmol/L Low 101-831 Co2 Carbon Dioxide 27 mmol/L Normal 22-32 Glucose 230 mg/dL High 70-100 Blood Urea Nitrogen 11 mg/dL Normal 6-24 Creatinine 0.57 mg/dL Normal 0.51-0.95 BUN/Creatinine Ratio 19.3 Normal 8-20 Calcium 9.8 mg/dL Normal 8.6-10.3 Total Protein 6.9 g/dL Normal 6.4-8.9 Albumin 4.1 g/dL Normal 3.2-5.2 Globulin 2.8 g/dL Normal 2-4 Albumin/Globulin Ratio 1.5 Normal 1-3 Total Bilirubin 0.60 mg/dL Normal 0.2-1.0 Alkaline Phosphatase 54 U/L Normal 34-104 Alt 33 U/L Normal 7-52 Ast 27 U/L Normal 13-39 Egfr Non- 104.9 >60 Egfr 126.9 >60 4 Sodium 118 mmol/L Critical low 135-145 5 Anion Gap 8 mmol/L Normal 2-11 Laboratory 01/14/2019 [facility] B-Type 23 pg/mL <=100 test finding [address] [place] [address] Peptide BNP [phone] CBC Auto Diff 01/14/2019 [facility] White Blood 9.7 Normal 3.5 -10.[address] Count 10^3/[place] [address] [phone] Red Blood Count 3.90 10^6/uL Normal 3.70-4.87 Hemoglobin 11.1 g/dL Low 12.0-16.0 Hematocrit 32 % Low 35-47 Mean Corpuscular Volume 83 fL Normal 80-97 Mean Corpuscular Hemoglobin 29 pg Normal 27-31 Mean Corpuscular HGB Conc 34 g/dL Normal 31-36 Red Cell Distribution Width 15 % Normal 10-15 Platelet Count 242 10^3/uL Normal 150-450 Mean Platelet Volume 8.7 fL Normal 7.4-10.4 Abs Neutrophils 8.2 10^3/uL High 1.5-7.7 Abs Lymphocytes 0.7 10^3/uL Low 1.0-4.8 Abs Monocytes 0.6 10^3/uL Normal 0-0.8 Abs Eosinophils 0.1 10^3/uL Normal 0-0.6 Abs Basophils 0.0 10^3/uL Normal 0-0.2 Abs Nucleated RBC 0.0 10^3/uL Granulocyte % 85.1 % Lymphocyte % 6.9 % Monocyte % 6.6 % Eosinophil % 1.1 % Basophil % 0.3 % Nucleated Red Blood Cells % 0.0 Inr/Protime 01/14/2019 [facility] Inr 1.11 High 0.82-1.[address] [place] [address] [phone] Laboratory test 01/14/2019 [facility] Troponin-I 0.00 ng/mL < 0.[address] (TnI) [place] [address] [phone] Laboratory test 01/14/2019 [facility] Troponin-I 0.01 ng/mL < 0.04 8 finding [address] (TnI) [place] [address] [phone] Urinalysis 12/17/2018 [facility] [place] [address] [phone] Urine Appearance Clear Urine Specific [place] 1.010 Normal 1.010-1.030 Urine pH 6.0 Normal 5-9 Urine Urobilinogen Negative Negative Urine Ketones Negative Negative Urine Protein Negative Negative Urine Leukocytes Negative Negative Urine Blood Negative Negative Urine Nitrite Negative Negative Urine Bilirubin Negative Negative Urine Glucose Negative Negative Comp Metabolic Panel 12/17/2018 [facility] Sodium 130 mmol/L Low 135-145 [place] [address] [phone] Potassium 4.8 mmol/L Normal 3.5-5.0 Chloride 94 mmol/L Low 101-111 Co2 Carbon Dioxide 27 mmol/L Normal 22-32 Anion Gap 9 mmol/L Normal 2-11 Glucose 124 mg/dL High 70-100 Blood Urea Nitrogen 11 mg/dL Normal 6-24 Creatinine 0.60 mg/dL Normal 0.51-0.95 BUN/Creatinine Ratio 18.3 Normal 8-20 Calcium 10.2 mg/dL Normal 8.6-10.3 Total Protein 7.1 g/dL Normal 6.4-8.9 Albumin 4.5 g/dL Normal 3.2-5.2 Globulin 2.6 g/dL Normal 2-4 Albumin/Globulin Ratio 1.7 Normal 1-3 Total Bilirubin 0.40 mg/dL Normal 0.2-1.0 Alkaline Phosphatase 42 U/L Normal 34-104 Alt 27 U/L Normal 7-52 Ast 24 U/L Normal 13-39 Egfr Non- 98.8 >60 Egfr 119.6 >60 9 Laboratory 12/17/2018 [facility] TSH (Thyroid 6.26 High 0.34- 5.[address] Stim Horm) mcIU/[place] [address] [phone] Laboratory 12/17/2018 [facility] Hemoglobin A1c 8.1 High 5-7 test finding Comp Metabolic 08/11/2018 [facility] Sodium 134 mmol/L Low 135 -145 Panel [address] [place] [address] [phone] Potassium 4.9 mmol/L Normal 3.5-5.0 Chloride 99 [...] Egfr Non- 88.5 >60 Egfr 107.1 >60 10 Lipid Profile 08/11/2018 [facility] Triglycerides 174 mg/dL 11 (Trig/Chol/HDL) [address] [place] [address] [phone] Cholesterol 89 mg/dL 12 HDL Cholesterol 37.0 mg/dL 13 LDL Cholesterol 17 mg/dL 14 Laboratory 08/11/2018 [facility] TSH (Thyroid 5.54 Normal 0.34 -5.[address] Stim Horm) mcIU/[place] [address] [phone] Free 2.70 pg/mL Normal 2.5-3.9 Thyroxine 8.39 g/dL Normal 6.09-12.23 Laboratory test finding 08/11/2018 [facility] Hemoglobin A1c 9.3 High 5 -7 1 Because ethnic data is not always [...] 5 Kidney failure <15 (or dialysis) 2 Length of time Urine Collected?: Random Cup/Unknown 3 Troponin-I testing on Plasma Separator Tubes (PST) has a known false positive rate of 0.20-0.40%. All positive troponins reflex immediately to secondary confirmatory testing. Using the [facility] DxI 800 Access Immunoassay systems, the 99th percentile upper reference limit was demonstrated to be < 0.03 ng/mL. 4 Because ethnic data is not always readily [...] 15-29 5 Kidney failure <15 (or dialysis) 5 Critical Result NA:118 Called to [id number] at: 17:50:09 by:[id number] Read back by:[id number] 6 Standard intensity warfarin therapeutic range: 2.0-3.0 High intensity warfarin therapeutic range: 2.5-3.5 7 Troponin-I testing on Plasma Separator Tubes (PST) has a known false positive rate of 0.20-0.40%. All positive troponins reflex immediately to secondary confirmatory testing. Using the [facility] DxI 800 Access Immunoassay systems, the 99th percentile upper reference limit was demonstrated to be < 0.03 ng/mL. 8 Troponin-I testing on Plasma Separator Tubes (PST) has a known false positive rate of 0.20-0.40%. All positive troponins reflex immediately to secondary confirmatory testing. Using the [facility] DxI 800 Access Immunoassay systems, the 99th percentile upper reference limit was demonstrated to be < 0.03 ng/mL. 9 Because ethnic data is not always readily [...] 15-29 5 Kidney failure <15 (or dialysis) 10 Because ethnic data is not always readily [...] 15-29 5 Kidney failure <15 (or dialysis) 11 Desirable: <150 Borderline High: 150-199 High: 200-499 Very High: >500 12 Desirable: <200 Borderline High: 200-239 High: >239 13 Low: <40 Desirable: 40-60 High: >60 14 Desirable: <100 Near Optimal: 100-129 Borderline High: 130-159 High: 160-189 Very High: >189 Procedures Date Code Description Status 04/03/2016 [id number] Mammogram Completed 04/20/2015 [id number] Diabetic Retinal Eye Exam Completed 03/31/2015 [id number] Mammogram Completed 03/02/2015 [id number] Bone Mineral Density Test Completed Medical Devices Description No Information Available Encounters Type Date Location Provider Dx Diagnosis Office Visit 01/15/2019 [facility] [place] Viktoriya Huitron, E87.1 Hypo- osmolality and 11:51a [place] Damian M.D. hyponatremia Hospitalists R06.02 Shortness of breath R07.9 Chest pain, unspecified Office Visit 12/17/2018 11:20a [facility] Internal Mickie Fountain, R22.41 Localized Medicine - Ccmob MD swelling, mass and lump, right lower limb E11.65 Type 2 diabetes mellitus with hyperglycemia I10 Essential (primary) hypertension M43.16 Spondylolisthesis, lumbar region G47.9 Sleep disorder, unspecified Office Visit 08/11/2018 9:40a [facility] Internal Mickie Fountain, E03.9 Hypothyroidism, Medicine - MD unspecified Ccmob E11.65 Type 2 diabetes mellitus with hyperglycemia G47.33 Obstructive sleep apnea (adult) (pediatric) I10 Essential (primary) hypertension E11.65 Type 2 diabetes mellitus with hyperglycemia Assessments Date Code Description Provider 01/26/2019 E11.65 Type 2 diabetes mellitus with hyperglycemia Mickie Fountain MD 01/26/2019 I10 Essential (primary) hypertension Mickie Fountain MD 01/26/2019 E87.1 Hypo-osmolality and hyponatremia Mickie Fountain MD 01/26/2019 E03.9 Hypothyroidism, unspecified Mickie Fountain MD 01/26/2019 M79.671 Pain in right foot Mickie Fountain MD 01/26/2019 F33.1 Major depressive disorder, recurrent, Mickie Fountain MD moderate 01/26/2019 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 01/15/2019 R06.02 Shortness of breath Viktoriya Huitron M.D. 01/15/2019 R07.9 Chest pain, unspecified Viktoriya Huitron M.D. 12/17/2018 R22.41 Localized swelling, mass and lump, right Mickie Fountain MD lower limb 12/17/2018 E11.65 Type 2 diabetes mellitus with hyperglycemia Mickie Fountain MD 12/17/2018 I10 Essential (primary) hypertension Mickie Fountain MD 12/17/2018 M43.16 Spondylolisthesis, lumbar region Mickie Fountain MD 12/17/2018 G47.9 Sleep disorder, unspecified Mickie Fountain MD 08/11/2018 E03.9 Hypothyroidism, unspecified Mickie Fountain MD 08/11/2018 E11.65 Type 2 diabetes mellitus with hyperglycemia Mickie Fountain MD 08/11/2018 G47.33 Obstructive sleep apnea (adult) (pediatric) Mickie Fountain MD 08/11/2018 I10 Essential (primary) hypertension Mickie Fountain MD 08/11/2018 E11.65 Type 2 diabetes mellitus with hyperglycemia Mickie Fountain MD Plan of Treatment Future Appointment(s):02/25/2019 1:00 pm - Mickie Fountain MD at [facility]02/03/2019 1:30 pm - Jovanna Wagoner NP at [facility]03/19/2019 2:20 pm - Mickie Fountain MD at [facility]01/26/2019 - Mickie Fountain MDE11.65 Type 2 diabetes mellitus with hyperglycemiaReferral:Tom Haynes MD, [id number] Essential (primary ) hypertensionFollow up:F/U 4 ktvoeQ23.1 Hypo-osmolality and vbiyfdodrgvgP06.9 Hypothyroidism, wvdgxkteubrZ10.671 Pain in right footReferral:Linda Espinosa DPM, NysvmqlmwlL15.1 Major depressive disorder, recurrent, moderateComments:Stay off husojnfdznF18.1 Serum neuropathyComments:Continue lyrical 75mg twice a day Functional Status Description No Information Available Mental Status Description No Information Available Referrals Refer to Reason for Referral Status Appt Date Tom Haynes MD Created [address] [place] [id number] [phone] Linda Espinosa DPM Created [address] [facility] [address] [phone] Regla Rolon MD Sent 02/03/[address] [place] [address] [phone]
--- OUTSIDE RECORDS SUMMARY | 2019-02-22 05:48 | XMS REPORT | Continuity of Care Document ---
:1950 External Reference #:[id number] Author Name Jovanna Wagoner NP (transmitted by agent of provider Jolanta Cohen) Address [address] [facility], [address] [place] [id number] Care Team Providers Name Role Phone Linda Espinosa DPM - Materials Handler Care Team Information Hammer Setter [phone] Regla Rolon MD - Pulmonary Care Team Information Hammer Setter Disease [facility] - Care Team Information Hammer Setter Conference Services Director Morena Lopez MD - Obstetrics & Care Team Information Hammer Setter Gynecology Connor Guzman M.D. - Care Team Information Hammer Setter Urology Mickie Fountain MD - Internal Medicine Care Team Information Hammer Setter Problems Active Problems Provider Date Diabetes mellitus Fly Chapman M.D. Onset: 02/24/2015 Essential hypertension Fly Chapman M.D. Onset: 02/24/2015 Hyperlipidemia Fly Chapman M.D. Onset: 02/24/2015 Hypothyroidism Fly Chapman M.D. Onset: 02/24/2015 Spinal stenosis of lumbar region Bruno Dunn M.D. Onset: 03/27/2015 Lumbar spondylolisthesis rBuno Dunn M.D. Onset: 03/27/2015 Disturbance in sleep behavior Regla Rolon MD Onset: 01/11/2016 Obesity Regla Rolon MD Onset: 01/11/2016 Obstructive sleep apnea syndrome Regla Rolon MD Onset: 04/25/2016 Type II diabetes mellitus uncontrolled Mickie Fountain MD Onset: 08/11/2018 Lumbar spondylolisthesis Mickie Fountain MD Onset: 12/17/2018 Social History Type Date Description Comments Sex Unknown Tobacco Use Start: Unknown Never Smoked Cigarettes Smoking Status Reviewed: 02/04/19 Never Smoked Cigarettes ETOH Use Never used alcohol Recreational Drug Use Denies Drug Use Tobacco Use Start: Unknown Patient has never smoked Exercise Type/Frequency Does not exercise Allergies, Adverse Reactions, Alerts Description No Known Drug Allergies Medications Active Medications SIG Qnty Indications Ordering Date Provider Walker use as needed 1units Mickie Fountain MD 01/28/2019 Misc -1950 dx-m43.16 Pregabalin take 1 capsule by 180caps Mickie Fountain MD 01/26/2019 75mg mouth twice a day Capsules Levothyroxine Sodium 1 by mouth every 30tabs Mickie Fountain MD 12/18/2018 day 75mcg Tablets Raised Toilet use to assist pt. 1units M43.16 Mickie Fountain MD 12/18/2018 Seat/Lock & Arms with rising after toilet use Misc Incontinence Brief change as needed 200units N39.46 Miller Powers NP 2018 Large due to incontinence Misc per 30 days - women's large Disposable Underpads per 30 days, use as 240units N39.46 Miller Powers NP needed Gloves per 30 days, use as 1Box N39.46 Miller Powers NP 09/22/2018 needed due to incontinence Basaglar Kwikpen 20 units sc at 6ml E11.65 Mickie Fountain MD 08/11/2018 bedtime 100Unit/ML [...] 1 by mouth every 90tabs E78.4 Artur EWhit 10mg Tablets day Ulises Gregory Calcium 500+D 1 by mouth a day 90tabs Mickie Fountain MD [id number] Tablets Aspirin 1 by mouth every 90tabs Artur Andrews 81mg Tablets day Ulises Gregory DR Vitamin B Complex 1 by mouth every Unknown day Tablets History Medications Hydrochlorothiazide 1 by mouth 30tabs I10 Mickie Fountain 12/17/2018 - 25mg Tablets every day 01/26/2019 Glyburide Take 1 Tablet 30tabs Mickie Fountain, 10/30/2018 - 5mg Tablets By Mouth Every MD 01/28/2019 Day Januvia 1 by mouth 90tabs Mickie Fountain, 10/16/2018 - 100mg Tablets every day 01/28/2019 Immunizations CPT Code Status Date Vaccine Lot # [id number] Given 03/17/2017 Influenza Virus Vaccine, Quadrivalent, Split, [id number] Preservative Free [id number] Given 09/16/2016 Pneumonia Vaccine [id number] Given 02/28/2016 Influ Virus Vaccine, Quadrivalent, Split Virus, [place] [id number] [id number] Given 08/14/2015 Tdap - Tetanus/Diptheria/Acellular Pertussis [id number] Given 08/14/2015 Pneumococcal Conjugate Vaccine 13 Valent For [id number] Intramuscular Use 73858 Given 02/24/2015 Influenza Virus Vaccine, Quadrivalent, Split, [id number] Preservative Free Vital Signs Date Vital Result Comment 02/04/2019 10:01am Height 62.5 inches 5'2.50" Heart Rate 68 /min BP Systolic Sitting 136 mmHg Lue large cuff BP Diastolic Sitting 80 mmHg Lue large cuff Respiratory Rate 12 /min O2 % BldC Oximetry 97 % 01/26/2019 10:04am Height 62.5 inches 5'2.50" Heart Rate 60 /min BP Systolic Sitting 121 mmHg BP Diastolic Sitting 75 mmHg Body Temperature 97.0 F O2 % BldC Oximetry 98 % Results Test Date Facility Test Result H/L Range Note Laboratory test 02/01/2019 [facility] Vitamin B12 571 pg/mL Normal 180-914 [address] [place] [address] [phone] Prealbumin 21 mg/dL Normal 18-38 C Reactive Protein 1.72 mg/L Normal <8.01 Erythrocyte Sed Rate 26 mm/Hr Normal 0-29 Comp Metabolic Panel 01/26/2019 [facility] Sodium 129 mmol/L Low 135-[address] [place] [address] [phone] Potassium 4.4 mmol/L Normal 3.5-5.0 Chloride 94 mmol/L Low 101-111 Co2 Carbon Dioxide 29 mmol/L Normal 22-32 Anion Gap 6 mmol/L Normal 2-11 Glucose 115 mg/dL High 70-100 Blood Urea Nitrogen 9 mg/dL Normal 6-24 Creatinine 0.57 mg/dL Normal 0.51-0.95 BUN/Creatinine Ratio 15.8 Normal 8-20 Calcium 9.6 mg/dL Normal 8.6-10.3 Total Protein 6.5 g/dL Normal 6.4-8.9 Albumin 4.2 g/dL Normal 3.2-5.2 Globulin 2.3 g/dL Normal 2-4 Albumin/Globulin Ratio 1.8 Normal 1-3 Total Bilirubin 0.40 mg/dL Normal 0.2-1.0 Alkaline Phosphatase 44 U/L Normal 34-104 Alt 26 U/L Normal 7-52 Ast 21 U/L Normal 13-39 Egfr Non- 104.9 >60 Egfr 126.9 >60 2 Laboratory 01/26/2019 [facility] TSH (Thyroid 1.93 Normal 0.34 -5.[address] Stim Horm) mcIU/[place] [address] [phone] Basic 01/15/2019 [facility] Sodium 121 mmol/L Low 135-[address] [address] [phone] Potassium 3.8 mmol/L Normal 3.5-5.0 Chloride 87 mmol/L Low 101-111 Co2 Carbon Dioxide 27 mmol/L Normal 22-32 Anion Gap 7 mmol/L Normal 2-11 Glucose 270 mg/dL High 70-100 Blood Urea Nitrogen 9 mg/dL Normal 6-24 Creatinine 0.50 mg/dL Low 0.51-0.95 BUN/Creatinine Ratio 18.0 Normal 8-20 Calcium 9.2 mg/dL Normal 8.6-10.3 Egfr Non- 122.0 >60 Egfr 147.6 >60 3 Laboratory 01/15/2019 [facility] Osmolality 295 Normal 100- 1150 4 test finding [address] Urine mOsm/[place] [address] [phone] Osmolality Serum 268 mOsm/kg Low 275-295 Laboratory test 01/15/2019 [facility] Sodium Random 65 mmol/L finding [address] [place] [address] [phone] Laboratory test 01/14/2019 [facility] Troponin-I 0.00 ng/mL < 0.[address] (TnI) [place] [address] [phone] Magnesium 1.3 mg/dL Low 1.9-2.7 Comp Metabolic 01/14/2019 [facility] Potassium 4.2 mmol/L Normal 3.5-5.[address] [place] [address] [phone] Chloride 83 mmol/L Low 101-111 Co2 Carbon Dioxide 27 [...] Egfr Non- 104.9 >60 Egfr 126.9 >60 6 Sodium 118 mmol/L Critical low 135-145 7 Anion Gap 8 mmol/L Normal 2-11 Laboratory 01/14/2019 [facility] B-Type 23 pg/mL <=[address] Natriuretic [place], [place] [address] Peptide BNP [phone] CBC Auto Diff 01/14/2019 [facility] White Blood 9.7 Normal 3.5 -10.[address] Count 10^3/[place] [address] [phone] Red Blood Count 3.90 10^6/uL Normal 3.70-4.87 [...] Red Blood Cells % 0.0 Inr/Protime 01/14/2019 [facility] Inr 1.11 High 0.82-1.[address] [place] [address] [phone] Laboratory test 01/14/2019 [facility] Troponin-I 0.00 ng/mL < 0.[address] (TnI) [place] [address] [phone] Laboratory test 01/14/2019 [facility] Troponin-I 0.01 ng/mL < 0.[address] (TnI) [place] [address] [phone] Urinalysis 12/17/2018 [facility] Urine Yellow Profile [address] [place] [address] [phone] Urine Appearance Clear Urine Specific [place] 1.010 Normal 1.010-1.030 Urine pH 6.0 Normal 5-9 Urine Urobilinogen Negative Negative Urine Ketones Negative Negative Urine Protein Negative Negative Urine Leukocytes Negative Negative Urine Blood Negative Negative Urine Nitrite Negative Negative Urine Bilirubin Negative Negative Urine Glucose Negative Negative Comp Metabolic Panel 12/17/2018 [facility] Sodium 130 mmol/L Low 135-145 [address] [place] [address] [phone] Potassium 4.8 mmol/L Normal 3.5-5.0 Chloride 94 [...] Egfr Non- 98.8 >60 Egfr 119.6 >60 11 Laboratory 12/17/2018 [facility] TSH (Thyroid 6.26 High 0.34- 5.60 test finding [address] [facility] Stim Horm) mcIU/[place] [address] [phone] Laboratory 12/17/2018 [facility] Hemoglobin A1c 8.1 High 5-7 test finding Comp Metabolic 08/11/2018 [facility] Sodium 134 mmol/L Low 135 -145 Panel [address] [place] [address] [phone] Potassium 4.9 mmol/L Normal 3.5-5.0 Chloride 99 [...] Egfr Non- 88.5 >60 Egfr 107.1 >60 12 Lipid Profile 08/11/2018 [facility] Triglycerides 174 mg/dL 13 (Trig/Chol/HDL) [address] [place] [address] [phone] Cholesterol 89 mg/dL 14 HDL Cholesterol 37.0 mg/dL 15 LDL Cholesterol 17 mg/dL 16 Laboratory 08/11/2018 [facility] TSH (Thyroid 5.54 Normal 0.34 -5.60 test finding [address] Stim Horm) mcIU/[place] [address] [phone] T3 Free 2.70 pg/mL Normal 2.5-3.9 Thyroxine 8.39 g/dL Normal 6.09-12.23 Laboratory test finding 08/11/2018 [facility] Hemoglobin A1c 9.3 High 5 -7 1 Normal Range 180 to 914 Indeterminate Range 145 to 180 Deficient Range <145 2 Because ethnic data is not always readily [...] 15-29 5 Kidney failure <15 (or dialysis) 3 Because ethnic data is not always readily [...] 15-29 5 Kidney failure <15 (or dialysis) 4 Length of time Urine Collected?: Random Cup/Unknown 5 Troponin-I testing on Plasma Separator Tubes (PST) has a known false positive rate of 0.20-0.40%. All positive troponins reflex immediately to secondary confirmatory testing. Using the QWiPS DxI 800 Access Immunoassay systems, the 99th percentile upper reference limit was demonstrated to be < 0.03 ng/mL. 6 Because ethnic data is not always readily [...] 15-29 5 Kidney failure <15 (or dialysis) 7 Critical Result NA:118 Called to [id number] at: 17:50:09 by:[id number] Read back by:[email or web address] [id number] Standard intensity warfarin therapeutic range: 2.0-3.0 High intensity warfarin therapeutic range: 2.5-3.5 9 Troponin-I testing on Plasma Separator Tubes (PST) has a known false positive rate of 0.20-0.40%. All positive troponins reflex immediately to secondary confirmatory testing. Using the [employer] DxI 800 Access Immunoassay systems, the 99th percentile upper reference limit was demonstrated to be < 0.03 ng/mL. 10 Troponin-I testing on Plasma Separator Tubes (PST) has a known false positive rate of 0.20-0.40%. All positive troponins reflex immediately to secondary confirmatory testing. Using the [employer] DxI 800 Access Immunoassay systems, the 99th percentile upper reference limit was demonstrated to be < 0.03 ng/mL. 11 Because ethnic data is not always [...] 5 Kidney failure <15 (or dialysis) 12 Because ethnic data is not always readily [...] 15-29 5 Kidney failure <15 (or dialysis) 13 Desirable: <150 Borderline High: 150-199 High: 200-499 Very High: >500 14 Desirable: <200 Borderline High: 200-239 High: >239 15 Low: <40 Desirable: 40-60 High: >60 16 Desirable: <100 Near Optimal: 100-129 Borderline High: 130-159 High: 160-189 Very High: >189 Procedures Date Code Description Status 01/15/2019 83658 ECHO Transthorasic Realtime 2D W Doppler & Color Flow Completed Hosp 01/15/2019 66683 Treadmill Interp/Report Only Completed 01/15/2019 39276 Stress Test Supervsn W/Out I/R Completed 04/03/2016 [id number] Mammogram Completed 04/20/2015 [id number] Diabetic Retinal Eye Exam Completed 03/31/2015 [id number] Mammogram Completed 03/02/2015 [id number] Bone Mineral Density Test Completed Medical Devices Description No Information Available Encounters Type Date Location Provider Dx Diagnosis Office Visit 02/04/2019 [facility] G47.33 Obstructive sleep 10:00a [facility] apnea (adult) [facility] (pediatric) R53.83 Other fatigue Office Visit 01/26/2019 10:00a [facility] Internal Mickiekahlil Fountain, E11.65 Type 2 diabetes Medicine - mellitus with Ccmob hyperglycemia I10 Essential (primary) hypertension E87.1 Hypo-osmolality and hyponatremia E03.9 Hypothyroidism, unspecified M79.671 Pain in right foot F33.1 Major depressive disorder, recurrent, moderate 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 hyponatremia [facility] R06.02 Shortness of breath R07.9 Chest pain, unspecified Office Visit 12/17/2018 11:20a [facility] Internal Mickiekahlil Fountain, R22.41 Localized Medicine - Ccmob swelling, mass and lump, right lower limb E11.65 Type 2 diabetes mellitus with hyperglycemia I10 Essential (primary) hypertension M43.16 Spondylolisthesis, lumbar region G47.9 Sleep disorder, unspecified Office Visit 08/11/2018 9:40a [facility] Mickie Fountain, E03.9 Hypothyroidism, Medicine - MD unspecified Ccmob E11.65 Type 2 diabetes mellitus with hyperglycemia G47.33 Obstructive sleep apnea (adult) (pediatric) I10 Essential (primary) hypertension E11.65 Type 2 diabetes mellitus with hyperglycemia Assessments Date Code Description Provider 02/04/2019 G47.33 Obstructive sleep apnea (adult) Jovanna Wagoner NP (pediatric) 02/04/2019 R53.83 Other fatigue Jovanna Wagoner NP 01/26/2019 E11.65 Type 2 diabetes mellitus with Mickie Fountain MD hyperglycemia 01/26/2019 I10 Essential (primary) hypertension Mickie Fountain MD 01/26/2019 E87.1 Hypo-osmolality and hyponatremia Mickie Fountain MD 01/26/2019 E03.9 Hypothyroidism, unspecified Mickie Fountain MD 01/26/2019 M79.671 Pain in right foot Mickie Fountain MD 01/26/2019 F33.1 Major depressive disorder, Mickie Fountain MD recurrent, moderate 01/26/2019 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 01/15/2019 R06.02 Shortness of breath Viktoriya Huitron M.D. 01/15/2019 R07.9 Chest pain, unspecified Viktoriya Huitron M.D. 12/17/2018 R22.41 Localized swelling, mass and lump, Mickie Fountain MD right lower limb 12/17/2018 E11.65 Type 2 diabetes mellitus with Mickie Fountain MD hyperglycemia 12/17/2018 I10 Essential (primary) hypertension Mickie Fountain MD 12/17/2018 M43.16 Spondylolisthesis, lumbar region Mickie Fountain MD 12/17/2018 G47.9 Sleep disorder, unspecified Mickie Fountain MD 08/11/2018 E03.9 Hypothyroidism, unspecified Mickie Fountain MD 08/11/2018 E11.65 Type 2 diabetes mellitus with Mickie Fountain MD hyperglycemia 08/11/2018 G47.33 Obstructive sleep apnea (adult) Mickie Fountain MD (pediatric) 08/11/2018 I10 Essential (primary) hypertension Mickie Fountain MD 08/11/2018 E11.65 Type 2 diabetes mellitus with Mickie Fountain MD hyperglycemia Plan of Treatment Future Appointment(s):04/29/2019 1:30 pm - Jovanna Wagoner NP at [facility]03/18/2019 2:00 pm - Tom Haynes MD at [place] [facility]02/25/2019 1:00 pm - Mickie Fountain MD at [facility] Internal Medicine - [facility]03/19/2019 2:20 pm - Mickie Fountain MD at [facility] Internal [facility] - [facility]02/04/2019 - Jovanna Wagoner NPG47.33 Obstructive sleep apnea (adult) (pediatric)New Orders:[facility], Ordered: Follow up:3 monthsRecommendations:Please bring your machine into the homecare company so they can see why it turned off while you wereusing it and fix it. We discussed getting the nidhi that connects to your machine so you can monitor your usage and AHI. We also discussed how to adjust the humidifier on the machine. Most machines useheated humidification, so if your humidifier is not heating the air, it might not be working correctly. If you have difficulty with your equipment, or need to replace your mask or hoses, please contact your homecare agency, [facility] . If you ever have difficulty getting supplies from them in a timely manner again, please contact our office and we can try to get a samplemask for you to use. If you have any further questions, please call the [facility] at [phone] If you have any sleepiness while driving you MUST avoid operating a vehicle or machinery. If you feel tired while driving, pulling unit operator and take a nap or switch drivers. If you know you are sleepy and need to go somewhere, arrange for a ride or use public transportation. It is very importantto not risk your safety or the safety of others.R53.83 Other fatigue Functional Status Description No Information Available Mental Status Description No Information Available Referrals Refer to Reason for Referral Status Appt Date Tom Haynes MD Sent 03/18/[address] [place] [address] [phone] Linda Espinosa DPM Sent [address] [facility] [address] [phone] W[facility] Sent 01/29/[address] [place] [address] [phone] Regla Rolon MD Sent 02/03/[address] [place] [id number] [phone]
[2019-02-22 06:46] LABS: ABS Eosinophils 0.2 10^3/ul (0-0.6); ABS Monocytes 0.8 10^3/ul (0-0.8); ABS Neutrophils 4.7 10^3/ul (1.5-7.7); Hematocrit 31 % (35-47); Hemoglobin 10.3 g/dL (12.0-16.0); Lymphocyte % 14.5 %; Mean Corpuscular HGB Conc 34 g/dL (31-36); Mean Corpuscular Hemoglobin 28 pg (27-31); Mean Corpuscular Volume 84 fL (80-97); Mean Platelet Volume 7.7 fL (7.4-10.4); Platelet Count 248 10^3/uL (150-450); Red Blood Count 3.66 10^6 /uL (3.70-4.87); Red Cell Distribution Width 16 % (10-15); White Blood Count 6.6 10^3/uL (3.5-10.8)
[2019-02-22 07:04] LABS: Albumin 3.9 g/dL (3.2-5.2); Albumin/Globulin Ratio 1.4 (1-3); BUN/Creatinine Ratio 20.6 (8-20); Calcium 9.4 mg/dL (8.6-10.3); EGFR Non-African American 93.4 (>60); Globulin 2.7 g/dL (2-4); Magnesium 1.5 mg/dL (1.9-2.7); Potassium 4.3 mmol/L (3.5-5.0); Total Bilirubin 0.3 mg/dL (0.2-1.0); Total Protein 6.6 g/dL (6.4-8.9)
[2019-02-22 07:05] LABS: Urine Appearance Clear; Urine Bilirubin Negative (Negative); Urine Blood Negative (Negative); Urine Color Straw; Urine Glucose Negative (Negative); Urine Ketones Negative (Negative); Urine Nitrite Negative (Negative); Urine Protein Negative (Negative); Urine Specific Gravity 1.006 (1.010-1.030); Urine Urobilinogen Negative (Negative)
[2019-02-22 07:06] LABS: Troponin I 0.01 ng/mL (<0.04)
[2019-02-22] MEDS ORDERED: Magnesium Sulfate 2 GM IV* 2 GM/50 ML BAG IVPB ONE (07:10)
--- NOTE | 2019-02-22 07:18 | ED ---
Complex/Multi-Sys Presentation - HPI Summary HPI Summary: Patient is a 68-year-old female who presents emergency Department with son for evaluation after fall that occurred this morning. Patient resides with her son. Son states that patient was admitted to the hospital 2 weeks ago for falls and hyponatremia. Son states that patient complained of dizziness and lightheadedness this morning and tripped and fell in the kitchen landing on her knees and hands. Since has been complaining of bilateral knee pain, hip pain bilateral hand pain and lumbar pain. Denies head injury or loss of consciousness. Is not anticoagulated. Past medical history of diabetes, hyperlipidemia, hypothyroidism. Symptoms are moderate in severity. No current modifying factors. - History Of Current Complaint Chief Complaint: EDFall Time Seen by Provider: 02/22/19 05:49 Hx Obtained From: Patient, Family/Dock Supervisor - Allergies/Home Medications Allergies/Adverse Reactions: Allergies Allergy/AdvReac Type Severity Reaction Status Date / Time No Known Allergies Allergy Verified 02/22/19 13:28 Home Medications: Home Medications Cetirizine* [ZyrTEC 10 MG TAB*] 1 tab PO DAILY 02/22/19 [History Confirmed 02/22] Fluticasone Propionate [Flonase Allergy Relief] 50 mcg BOTH NARES DAILY [History Confirmed 02/22/19] Insulin Glargine,Hum.rec.anlog [Basaglar Kwikpen U-100] 20 units INJ BEDTIME [History Confirmed 02/22/19] Oyster Shell 500Mg-Vit D3 5Mcg 1 tab PO DAILY 02/22/19 [History Confirmed ] PMH/Surg Hx/FS Hx/Imm Hx Previously Healthy: Yes Endocrine/Hematology History: Reports: Hx Diabetes, Hx Thyroid Disease Cardiovascular History: Reports: Hx Angina, Hx Hypercholesterolemia, Hx Hypertension Denies: Hx Pacemaker/ICD Respiratory History: Reports: Hx Sleep Apnea History: Denies: Hx Renal Disease Musculoskeletal History: Reports: Hx Back Problems, Other Musculoskeletal History - lumbar spinal stenosis, acquired spondylolisthesis Sensory History: Reports: Hx Contacts or Glasses, Hx Glaucoma, Other Sensory Impairments - dentures Denies: Hx Hearing Aid Opthamlomology History: Reports: Hx Contacts or Glasses, Hx Glaucoma, Other Sensory Impairments - dentures Neurological History: Reports: Other Neuro Impairments/Disorders - spinal stenosis. PAIN CLINIC PT. Psychiatric History: Denies: Hx Panic Disorder - Cancer History Hx Chemotherapy: No Hx Radiation Therapy: No - Surgical History Surgery Procedure, Year, and Place: CATARACTS Infectious Disease History: No Infectious Disease History: Denies: Traveled Outside the [place] in Last 30 Days - Family History Known Family History: Positive: Other - low potssium - Social History Occupation: Retired Lives: With Family Alcohol Use: None Hx Substance Use: No Substance Use Type: Reports: None Hx Tobacco Use: No Smoking Status (MU): Never Smoked Tobacco Review of Systems Constitutional: Negative Negative: Fever Eyes: Negative ENT: Negative Cardiovascular: Negative Negative: Chest Pain Respiratory: Negative Negative: Shortness Of Breath, Cough Gastrointestinal: Negative Negative: Abdominal Pain, Vomiting, Diarrhea Genitourinary: Negative Negative: dysuria Positive: Other - Bilateral knee pain, hip pain, lumbar pain and hand pain Skin: Negative Neurological: Negative All Other Systems Reviewed And Are Negative: Yes Physical Exam Triage Information Reviewed: Yes Vital Signs On Initial Exam: Initial Vitals Temp Pulse Resp BP Pulse Ox 98.1 F 72 18 139/80 96 02/22/19 05:29 02/22/19 05:29 02/22/19 05:29 02/22/19 05:29 02/22/19 05:29 Vital Signs Reviewed: Yes Appearance: Positive: Well-Appearing - Patient sitting in bed in no acute distress. Son present. Skin: Positive: Warm, Dry Head/Face: Positive: Normal Head/Face Inspection Procedures - Sedation Patient Received Moderate/Deep Sedation with Procedure: No Diagnostics - Vital Signs Vital Signs Temp Pulse Resp BP Pulse Ox 02/22/19 06:23 62 19 136/73 98 02/22/19 06:00 72 97 02/22/19 05:53 71 147/64 99 02/22/19 05:52 74 97 02/22/19 05:29 98.1 F 72 18 139/80 96 - Laboratory Lab Results: Lab Results 02/22/19 02/22/19 02/22/19 Range/Units 06:36 06:36 06:36 WBC 6.6 (3.5-10.8) 10^3/uL RBC 3.66 L (3.70-4.87) 10^6 /uL Hgb 10.3 L (12.0-16.0) g/dL Hct 31 L (35-47) % MCV 84 (80-97) fL MCH 28 (27-31) pg MCHC 34 (31-36) g/dL RDW 16 H (10-15) % Plt Count 248 (150-450) 10^3/uL MPV 7.7 (7.4-10.4) fL Neut % (Auto) 70.6 % Lymph % (Auto) 14.5 % [place] % (Auto) 11.4 % Eos % (Auto) 3.0 % Baso % (Auto) 0.5 % Absolute Neuts (auto) 4.7 (1.5-7.7) 10^3/ul Absolute Lymphs (auto) 1.0 (1.0-4.8) 10^3/ul Absolute Monos (auto) 0.8 (0-0.8) 10^3/ul Absolute Eos (auto) 0.2 (0-0.6) 10^3/ul Absolute Basos (auto) 0.0 (0-0.2) 10^3/ul Absolute Nucleated RBC 0.0 10^3/ul Nucleated RBC % 0.0 Sodium 135 (135-145) mmol/L Potassium 4.3 (3.5-5.0) mmol/L Chloride 100 L (101-111) mmol/L Carbon Dioxide 28 (22-32) mmol/L Anion Gap 7 (2-11) mmol/L BUN 13 (6-24) mg/dL Creatinine 0.63 (0.51-0.95) mg/dL Est GFR ( Amer) 113.0 (>60) Est GFR (Non-Af Amer) 93.4 (>60) BUN/Creatinine Ratio 20.6 H (8-20) Glucose 164 H (70-100) mg/dL Lactic Acid 1.3 (0.5-2.0) mmol/L Calcium 9.4 (8.6-10.3) mg/dL Magnesium 1.5 L (1.9-2.7) mg/dL Total Bilirubin 0.30 (0.2-1.0) mg/dL AST 20 (13-39) U/L ALT 22 (7-52) U/L Alkaline Phosphatase 40 (34-104) U/L Troponin I 0.01 (<0.04) ng/mL B-Natriuretic Peptide (<=100) pg/mL Total Protein 6.6 (6.4-8.9) g/dL Albumin 3.9 (3.2-5.2) g/dL Globulin 2.7 (2-4) g/dL Albumin/Globulin Ratio 1.4 (1-3) TSH Pending Urine Color Urine Appearance Urine pH (5-9) Ur Specific [place] (1.010-1.030) Urine Protein (Negative) Urine Ketones (Negative) Urine Blood (Negative) Urine Nitrate (Negative) Urine Bilirubin (Negative) Urine Urobilinogen (Negative) Ur Leukocyte Esterase (Negative) Urine Glucose (Negative) 02/22/19 02/22/19 Range/Units 06:36 06:57 WBC (3.5-10.8) 10^3/uL RBC (3.70-4.87) 10^6 /uL Hgb (12.0-16.0) g/dL Hct (35-47) % MCV (80-97) fL MCH (27-31) pg MCHC (31-36) g/dL RDW (10-15) % Plt Count (150-450) 10^3/uL MPV (7.4-10.4) fL Neut % (Auto) % Lymph % (Auto) % [place] % (Auto) % Eos % (Auto) % Baso % (Auto) % Absolute Neuts (auto) (1.5-7.7) 10^3/ul Absolute Lymphs (auto) (1.0-4.8) 10^3/ul Absolute Monos (auto) (0-0.8) 10^3/ul Absolute Eos (auto) (0-0.6) 10^3/ul Absolute Basos (auto) (0-0.2) 10^3/ul Absolute Nucleated RBC 10^3/ul Nucleated RBC % Sodium (135-145) mmol/L Potassium (3.5-5.0) mmol/L Chloride (101-111) mmol/L Carbon Dioxide (22-32) mmol/L Anion Gap (2-11) mmol/L BUN (6-24) mg/dL Creatinine (0.51-0.95) mg/dL Est GFR ( Amer) (>60) Est GFR (Non-Af Amer) (>60) BUN/Creatinine Ratio (8-20) Glucose (70-100) mg/dL Lactic Acid (0.5-2.0) mmol/L Calcium (8.6-10.3) mg/dL Magnesium (1.9-2.7) mg/dL Total Bilirubin (0.2-1.0) mg/dL AST (13-39) U/L ALT (7-52) U/L Alkaline Phosphatase (34-104) U/L Troponin I (<0.04) ng/mL B-Natriuretic Peptide 60 (<=100) pg/mL Total Protein (6.4-8.9) g/dL Albumin (3.2-5.2) g/dL Globulin (2-4) g/dL Albumin/Globulin Ratio (1-3) TSH Urine Color Straw Urine Appearance Clear Urine pH 8.0 (5-9) Ur Specific [place] 1.006 L (1.010-1.030) Urine Protein Negative (Negative) Urine Ketones Negative (Negative) Urine Blood Negative (Negative) Urine Nitrate Negative (Negative) Urine Bilirubin Negative (Negative) Urine Urobilinogen Negative (Negative) Ur Leukocyte Esterase Negative (Negative) Urine Glucose Negative (Negative) Result Diagrams: 02/22/19 06:36 02/22/19 06:36 Lab Statement: Any lab studies that have been ordered have been reviewed, and results considered in the medical decision making process. Complex Multi-Symp Course/Dx Course Of Treatment: Pt. presenting for evaluation of injuries and possible near syncopal episode. Pt. at baseline in ed. VS stable. Labs and imaging ordered. ECG done at 0614 shows a sinus rhythm of 61bpm, normal axis, no ST elevation or depression. Xrays negative for acute findings expect possible right hip fx per radiology. CT scan obtained to r.o. Labs show chronic anemia. Mag low at 1.5, pt. given [address] scan negative for fx per radiology. U/ A negative. Results discussed with pt.'s son. Son comfortable with taking pt. home. Pt. was rx a walker and cane at last visit. Strongly advised son to pick these up for pt. Close f.u with pcp and return to er if sxs change or worsen. - Diagnoses Provider Diagnoses: Fall, Knee injury, Hand contusion, Lumbar strain, Hypomagnesemia Discharge ED - Sign-Out/Discharge Documenting (check all that apply): Patient Departure - Discharge Plan Condition: Good Disposition: HOME Patient Education Materials: Fall Prevention for Older Adults (ED), Knee Pain ( ED), Hypomagnesemia (ED) Referrals: Mickie Fountain MD [Primary Care Provider] - Additional Instructions: Schedule a follow up appointment with your PCP within 2-3 days Please tack picker and use walker or cane that were prescribed at your last visit Ice and rest effective areas Tylenol for pain as directed Return to ER if symptoms change or worsen - Billing Disposition and Condition Condition: GOOD Disposition: Home - Attestation Statements Provider Attestation: the patient was seen by the midlevel provider, it was determined by them that it was not necessary for me to see the patient, I was available for consult during the patient's visit in the ED. I did not establish and patient-physician relationship. The chart however has been reviewed and I am signing in an administrative capacity.
[2019-02-22 07:19] LABS: TSH (Thyroid Stimulating Horm) 3.9 mcIU/mL (0.34-5.60)
[2019-02-22 10:21] VITALS: BP 144/84
== END 2019-02-22 10:19 | disposition home or self-care (01) ==
LOC: ED 05:27
DX: S39.012A Strain of muscle, fascia and tendon of lower back, initial encounter (principal); S89.90XA Unspecified injury of unspecified lower leg, initial encounter; S60.229A Contusion of unspecified hand, initial encounter; E83.42 Hypomagnesemia; W01.0XXA Fall on same level from slipping, tripping and stumbling without subsequent striking against object, initial encounter; Y92.000 Kitchen of unspecified non-institutional (private) residence as the place of occurrence of the external cause; E11.9 Type 2 diabetes mellitus without complications; E03.9 Hypothyroidism, unspecified; E78.5 Hyperlipidemia, unspecified; E78.00 Pure hypercholesterolemia, unspecified; I10 Essential (primary) hypertension; Z79.4 Long term (current) use of insulin; Z79.82 Long term (current) use of aspirin; Z79.890 Hormone replacement therapy; Z79.899 Other long term (current) drug therapy
CPT/HCPCS: 36415; 71045; 72110; 72170; 80053; 81003; 83605; 83735; 83880; 84443; 84484; 85025; 93005; 96365; 99284; J3475